=== PATIENT | male | born 1950 | race African-American/Black ===

== ENCOUNTER 2019-11-09 06:31 | Outpatient (CLI) | payer BC, MEDICARE, SELFPAY ==
--- NOTE | 2019-11-09 06:39 | ECHO_ITS ---
Patient Info Name: Abiel Flores Age: 69 years : 1950 Gender: Male Ht: 70 in Wt: 158 lbs BSA: 1.88 m2 HR: 66 bpm BP: 107 / 70 mmHg Exam Date: 11/09/2019 6:53 AM Exam Location: [facility] Patient Status: Outpatient Admit Date: 11/09/2019 Staff Ordering Physician: Keegan Dueñas DO Fleet Driver: Dimas Cardona RDCS, RT Attending Provider: Keegan Dueñas DO Referring Physician: Spenser CHOW; Exam Type: CA echo doppler color flow Study Info Indications I50.9 - Heart failure, unspecified Complete two-dimensional, color flow and Doppler transthoracic echocardiogram is performed. Summary 1. Left ventricular chamber dimension is mildly enlarged. 2. Left ventricular systolic function is normal, estimated at 50-55%. 3. There is mild concentric increased left ventricular wall thickness. 4. The left ventricular diastolic function is normal. 5. Ventricular septum is sigmoid shaped. 6. Septum thickness measured 1.5 cm and posterior wall 1.3 cm. No LVOT obstruction. This suggests a possibility of hypertrophic cardiomyopathy. 7. Preserved LV systolic function. 8. Cannot completely rule out small LV apical thrombus. 9. Tissue doppler is not performed. 10. Global longitudinal strain is abnormal at -10.9%. 11. Mildly thickened mitral valve leaflets. 12. There is mild to moderate mitral valve regurgitation. 13. There is mild tricuspid valve regurgitation. Left Ventricle Cannot completely rule out small LV apical thrombus. Tissue doppler is not performed. Ventricular septum is sigmoid shaped. Septum thickness measured 1.5 cm and posterior wall 1.3 cm. No LVOT obstruction. This suggests a possibility of hypertrophic cardiomyopathy. Preserved LV systolic function. Global longitudinal strain is abnormal at -10.9%. Left ventricular chamber dimension is mildly enlarged. Left ventricular systolic function is normal, estimated at 50-55%. There is mild concentric increased left ventricular wall thickness. The left ventricular diastolic function is normal. Right Ventricle Right ventricular chamber dimension is normal. Right ventricular systolic function is normal. Left Atria Left atrial chamber dimension is normal. Right Atria Right atrial chamber dimension is normal. Aortic Valve The aortic valve is trileaflet. There is no aortic valve stenosis. There is no aortic valve regurgitation. Pulmonic Valve There is no pulmonic regurgitation. Mitral Valve Mildly thickened mitral valve leaflets. There is no mitral valve stenosis. There is mild to moderate mitral valve regurgitation. Tricuspid Valve RVSP is not calculated due to an inadequate TR jet. There is mild tricuspid valve regurgitation. Pericardium/Pleural There is no pericardial effusion. Inferior Vena Cava Normal inferior vena cava with >50% collapse upon inspiration consistent with normal right atrial pressure, 5 mmHg. Aorta The aortic root size at the sinus of Valsalva is normal. Left Ventricular Outflow Tract Name Value Normal LVOT 2D LVOT Diameter 2.0 cm LVOT Doppler LVOT Peak Velocity 88 cm/s
== END 2019-11-09 06:32 | disposition home or self-care (01) ==
PROVIDERS: PCP Family Medicine; Visit Provider Internal Medicine Cardiovascular Disease
DX: I50.20 Unspecified systolic (congestive) heart failure (principal); R93.1 Abnormal findings on diagnostic imaging of heart and coronary circulation; I51.7 Cardiomegaly; I08.1 Rheumatic disorders of both mitral and tricuspid valves
CPT/HCPCS: 93306

== ENCOUNTER 2020-01-11 11:38 | Outpatient (RCR) | payer BC, MEDICARE, SELFPAY ==
[2019-10-29 10:18] LABS: INR 1.1; Prothrombin Time 13.7 Seconds (11.1-14.7)
[2019-11-07 11:08] LABS: INR 1.8; Prothrombin Time 20.7 Seconds (11.1-14.7)
[2019-12-10 10:27] LABS: Prothrombin Time 65.4 Seconds (11.1-14.7)
[2019-12-10 10:34] LABS: INR 7.9
[2019-12-14 10:18] LABS: INR 2.8; Prothrombin Time 29.3 Seconds (11.1-14.7)
[2019-12-21 09:55] LABS: INR 1.3; Prothrombin Time 15.8 Seconds (11.1-14.7)
[2019-12-28 09:44] LABS: INR 2.1
[2020-01-11 12:50] LABS: Prothrombin Time 38.5 Seconds (11.1-14.7)
== END 2020-01-27 23:59 | disposition home or self-care (01) ==
LOC: ANHLAB 11:38
PROVIDERS: PCP Family Medicine; Visit Provider Internal Medicine Cardiovascular Disease
DX: I51.3 Intracardiac thrombosis, not elsewhere classified (principal); I50.20 Unspecified systolic (congestive) heart failure
CPT/HCPCS: 36415; 85610

== ENCOUNTER 2020-01-21 09:29 | Outpatient (CLI) | payer MEDICARE, SELFPAY ==
--- NOTE | 2020-01-21 09:43 | ECHO_ITS ---
Patient Info Name: Abiel Flores Age: 69 years : 1950 Gender: Male Ht: 70 in Wt: 157 lbs BSA: 1.88 m2 HR: 71 bpm BP: 127 / 80 mmHg Heart Rhythm: Sinus Rhythm Technical Quality: Good Exam Date: 01/21/2020 9:52 AM Exam Location: [facility] Patient Status: Outpatient Admit Date: 01/21/2020 Staff Ordering Physician: Keegan Dueñas DO Medical Records Clerk: Bobbi Shepherd RDCS Attending Provider: Keegan Dueñas DO Referring Physician: Spenser CHOW; Exam Type: CA echo doppler color flow Study Info Indications - chf Complete two-dimensional, color flow and Doppler transthoracic echocardiogram is performed. Summary 1. Left ventricular chamber dimension is normal. 2. Left ventricular systolic function is normal, estimated at 55-60%. 3. Ventricular septum is sigmoid shaped. 4. There is moderately increased left ventricular wall thickness. 5. The left ventricular diastolic function is grade I diastolic dysfunction. 6. E/e' 12 is mildly elevated. 7. Global longitudinal strain is abnormal at -12.9%. 8. Left atrial chamber dimension is moderately enlarged. 9. There is mild mitral valve regurgitation. 10. No pulmonary hypertension, estimated pulmonary arterial systolic pressure is 28 mmHg. 11. There is trace pulmonic regurgitation. Left Ventricle E/e' 12 is mildly elevated. Global longitudinal strain is abnormal at -12.9%. Ventricular septum is sigmoid shaped. Left ventricular chamber dimension is normal. Left ventricular systolic function is normal, estimated at 55-60%. There is moderately increased left ventricular wall thickness. The left ventricular diastolic function is grade I diastolic dysfunction. Right Ventricle Right ventricular chamber dimension is normal. Right ventricular systolic function is normal. Left Atria Left atrial chamber dimension is moderately enlarged. Right Atria Right atrial chamber dimension is normal. Aortic Valve The aortic valve is trileaflet. There is no aortic valve stenosis. There is no aortic valve regurgitation. Pulmonic Valve There is trace pulmonic regurgitation. Mitral Valve There is no mitral valve stenosis. There is mild mitral valve regurgitation. Tricuspid Valve There is no tricuspid valve regurgitation. No pulmonary hypertension, estimated pulmonary arterial systolic pressure is 28 mmHg. Pericardium/Pleural There is no pericardial effusion. Inferior Vena Cava Normal inferior vena cava with >50% collapse upon inspiration consistent with normal right atrial pressure, 5 mmHg. Aorta The aortic root size at the sinus of Valsalva is normal. Left Ventricular Outflow Tract Name Value Normal LVOT 2D LVOT Diameter 2.0 cm LVOT Doppler LVOT Peak Gradient 4 mmHg LVOT Mean Gradient 2 mmHg LVOT VTI 17 cm LVOT VTI/AV VTI Ratio 0.8 LVOT Stroke Volume 53 ml LVOT CO 12.8 l/min LVOT CI 6.8 l/min/m2 Pulmonic Valve
== END 2020-01-21 09:30 | disposition home or self-care (01) ==
PROVIDERS: PCP Family Medicine; Visit Provider Internal Medicine Cardiovascular Disease
DX: I50.20 Unspecified systolic (congestive) heart failure (principal); I34.0 Nonrheumatic mitral (valve) insufficiency
CPT/HCPCS: 93306

== ENCOUNTER 2020-03-21 11:38 | Outpatient (CLI) | payer MEDICARE, SELFPAY ==
--- NOTE | 2020-03-21 09:07 | ECHO_ITS ---
Patient Info Name: Abiel Flores Age: 70 years : 1950 Gender: Male Ht: 72 in Wt: 160 lbs BSA: 1.92 m2 HR: 82 bpm BP: 123 / 84 mmHg Technical Quality: Good Exam Date: 03/21/2020 9:22 AM Exam Location: [facility] Patient Status: Outpatient Admit Date: 03/21/2020 Staff Ordering Physician: Keegan Dueñas DO Account Group Supervisor: Dimas Cardona RDCS, RT Attending Provider: Keegan Dueñas DO Referring Physician: Spenser CHOW; Exam Type: CA echo doppler color flow Study Info Indications I50.9 - Heart failure, unspecified Complete two-dimensional, color flow and Doppler transthoracic echocardiogram is performed. Summary 1. Left ventricular chamber dimension is moderately enlarged. 2. Left ventricular systolic function is severely reduced, estimated at 25-30%. 3. There is moderately increased left ventricular wall thickness. 4. The left ventricular diastolic function is grade III diastolic dysfunction. 5. E/e' 19 is elevated. 6. Global longitudinal strain is abnormal at -5.5% with apical sparing suggesting cardiac amyloidosis. 7. Left atrial chamber dimension is mildly enlarged. 8. Right atrial chamber dimension is mildly enlarged. 9. There is moderate mitral valve regurgitation. 10. There is moderate tricuspid valve regurgitation. 11. Mild pulmonary hypertension, estimated pulmonary arterial systolic pressure is 49 mmHg. 12. Dilated inferior vena cava with <50% collapse upon inspiration consistent with significantly elevated right atrial pressure, 15 mmHg. 13. There is trivial pericardial effusion. Left Ventricle E/e' 19 is elevated. Global longitudinal strain is abnormal at -5.5% with apical sparing suggesting cardiac amyloidosis. Left ventricular chamber dimension is moderately enlarged. Left ventricular systolic function is severely reduced, estimated at 25-30%. There is moderately increased left ventricular wall thickness. The left ventricular diastolic function is grade III diastolic dysfunction. Right Ventricle Right ventricular chamber dimension is normal. Right ventricular systolic function is reduced. Left Atria Left atrial chamber dimension is mildly enlarged. Right Atria Right atrial chamber dimension is mildly enlarged. Aortic Valve The aortic valve is trileaflet. There is no aortic valve stenosis. There is no aortic valve regurgitation. Pulmonic Valve There is no pulmonic regurgitation. Mitral Valve There is no mitral valve stenosis. There is moderate mitral valve regurgitation. Tricuspid Valve There is moderate tricuspid valve regurgitation. Mild pulmonary hypertension, estimated pulmonary arterial systolic pressure is 49 mmHg. Pericardium/Pleural There is trivial pericardial effusion. Inferior Vena Cava Dilated inferior vena cava with <50% collapse upon inspiration consistent with significantly elevated right atrial pressure, 15 mmHg. Aorta The aortic root size at the sinus of Valsalva is normal. Left Ventricular Outflow Tract Name Value Normal LVOT 2D LVOT Diameter 2.1 cm LVOT Doppler LVOT Peak Gradient 1 mmHg LVOT Mean Gr
[2020-03-21 09:09] LABS: INR 1.1; Prothrombin Time 13.7 Seconds (11.1-14.7)
[2020-03-21 12:43] LABS: Blood Urea Nitrogen 24 mg/dL (9-20); Calcium 8.9 mg/dL (8.4-10.2); Carbon Dioxide 25 mmol/L (22-30); Chloride 105 mmol/L (98-107); Estimated Glomerular Filt Rate > 60; Glucose 189 mg/dL (75-110); Potassium 4.1 mmol/L (3.4-5.0); Sodium 138 mmol/L (137-145)
== END 2020-03-21 11:39 | disposition home or self-care (01) ==
PROVIDERS: PCP Family Medicine; Visit Provider Internal Medicine Cardiovascular Disease
DX: N18.3 Chronic kidney disease, stage 3 (moderate) (principal); I50.20 Unspecified systolic (congestive) heart failure; I25.10 Atherosclerotic heart disease of native coronary artery without angina pectoris; I51.3 Intracardiac thrombosis, not elsewhere classified; I47.2 Ventricular tachycardia; I47.1 Supraventricular tachycardia; I34.0 Nonrheumatic mitral (valve) insufficiency; I36.1 Nonrheumatic tricuspid (valve) insufficiency; I27.20 Pulmonary hypertension, unspecified
CPT/HCPCS: 36415; 80048; 85610; 93306

== ENCOUNTER 2020-05-16 08:29 | Outpatient (CLI) | payer MEDICARE, SELFPAY ==
[2020-05-16 09:22] LABS: Albumin Level 3.9 g/dL (3.5-5.1); Blood Urea Nitrogen 24 mg/dL (9-20); Calcium 9.5 mg/dL (8.4-10.2); Carbon Dioxide 28 mmol/L (22-30); Chloride 102 mmol/L (98-107); Estimated Glomerular Filt Rate > 60; Glucose 188 mg/dL (75-110); Phosphorus 4.2 mg/dL (2.5-4.5); Potassium 3.9 mmol/L (3.4-5.0); Sodium 137 mmol/L (137-145)
[2020-05-16 09:41] LABS: Creatinine Urine 24.9 mg/dL; Total Protein Urine Random 11 mg/dL
== END 2020-05-16 08:30 | disposition home or self-care (01) ==
LOC: ANHLAB 08:33
PROVIDERS: PCP Family Medicine; Visit Provider Internal Medicine Nephrology
DX: R80.8 Other proteinuria (principal); I10 Essential (primary) hypertension; E11.9 Type 2 diabetes mellitus without complications
CPT/HCPCS: 36415; 80069; 82570; 84156; 86225; 86334; 86335

== ENCOUNTER 2020-06-06 07:48 | Outpatient (CLI) | payer MEDICARE, SELFPAY ==
--- NOTE | 2020-06-06 08:04 | ECHO_ITS ---
Patient Info Name: Abiel Flores Age: 70 years : 1950 Gender: Male Ht: 69 in Wt: 150 lbs BSA: 1.82 m2 BP: 150 / 59 mmHg Technical Quality: Good Exam Date: 06/06/2020 8:20 AM Exam Location: [facility] Patient Status: Outpatient Admit Date: 06/06/2020 Staff Ordering Physician: Keegan Dueñas DO Aluminum Boats Assembler: Dimas Cardona RDCS, RT Attending Provider: Keegan Dueñas DO Referring Physician: Spenser CHOW; Exam Type: CA echo dop color flow w con Study Info Indications I50.9 - Heart failure, unspecified Complete two-dimensional, color flow and Doppler transthoracic echocardiogram is performed. Summary 1. Left ventricular chamber dimension is mildly enlarged. 2. Left ventricular systolic function is moderately reduced, estimated at 35-40%. 3. The left ventricular diastolic function is abnormal. 4. E/e' 16 is elevated. 5. Global longitudinal strain is abnormal at -7.2% with predominantly apical sparing. 6. Left atrial chamber dimension is mildly enlarged. 7. There is mild mitral valve regurgitation. 8. There is mild tricuspid valve regurgitation. 9. Mild pulmonary hypertension, estimated pulmonary arterial systolic pressure is 48 mmHg. 10. Dilated inferior vena cava with >50% collapse upon inspiration consistent with elevated right atrial pressure, 10 mmHg. Left Ventricle E/e' 16 is elevated. Global longitudinal strain is abnormal at -7.2% with predominantly apical sparing. Left ventricular chamber dimension is mildly enlarged. Left ventricular systolic function is moderately reduced, estimated at 35-40%. The left ventricular diastolic function is abnormal. Right Ventricle Right ventricular chamber dimension is normal. Right ventricular systolic function is normal. Left Atria Left atrial chamber dimension is mildly enlarged. Right Atria Right atrial chamber dimension is normal. Aortic Valve The aortic valve is trileaflet. There is no aortic valve stenosis. There is no aortic valve regurgitation. Pulmonic Valve There is no pulmonic regurgitation. Mitral Valve There is no mitral valve stenosis. There is mild mitral valve regurgitation. Tricuspid Valve There is mild tricuspid valve regurgitation. Mild pulmonary hypertension, estimated pulmonary arterial systolic pressure is 48 mmHg. Pericardium/Pleural There is no pericardial effusion. Inferior Vena Cava Dilated inferior vena cava with >50% collapse upon inspiration consistent with elevated right atrial pressure, 10 mmHg. Aorta The aortic root size at the sinus of Valsalva is normal. Left Ventricular Outflow Tract Name Value Normal LVOT 2D LVOT Diameter 2.14 cm LVOT Doppler LVOT Peak Gradient 2 mmHg LVOT Mean Gradient 1 mmHg LVOT VTI 11.96 cm LVOT VTI/AV VTI Ratio 0.64 LVOT Stroke Volume 43.01 ml LVOT CO 3.84 l/min LVOT CI 2.11 L/min/m2 Pulmonic Valve
== END 2020-06-06 07:49 | disposition home or self-care (01) ==
LOC: ANHCARD 07:49
PROVIDERS: PCP Family Medicine; Visit Provider Internal Medicine Cardiovascular Disease
DX: I50.22 Chronic systolic (congestive) heart failure (principal); I51.7 Cardiomegaly; I27.20 Pulmonary hypertension, unspecified
CPT/HCPCS: C8929

== ENCOUNTER 2020-09-08 07:22 | Outpatient (CLI) | payer MEDICARE, SELFPAY ==
--- NOTE | 2020-09-08 07:52 | ECHO_ITS ---
Patient Info Name: Abiel Flores Age: 70 years : 1950 Gender: Male Ht: 70 in Wt: 152 lbs BSA: 1.84 m2 HR: 80 bpm BP: 115 / 80 mmHg Heart Rhythm: Sinus Rhythm Technical Quality: Good Exam Date: 09/08/2020 8:02 AM Exam Location: [facility] Patient Status: Outpatient Admit Date: 09/08/2020 Staff Ordering Physician: Keegan Dueañs DO Copying Machine Mechanic: Rancho Evans RDCS Attending Provider: Keegan Dueñas DO Referring Physician: Spenser CHOW; Exam Type: CA echo dop color flow w con Study Info Indications I50.22 - Chronic systolic (congestive) heart failure Complete two-dimensional, color flow and Doppler transthoracic echocardiogram is performed. History/Risk Factors Chronic systolic heart failure. Summary 1. Complete two-dimensional, color flow and Doppler transthoracic echocardiogram is performed. 2. Left ventricular chamber dimension is mildly enlarged. 3. Basal to mid LV segments are hypokinetic. 4. Left ventricular systolic function is moderately reduced, estimated at 35-40%. 5. There is moderately increased left ventricular wall thickness. 6. The left ventricular diastolic function is grade IV diastolic dysfunction. 7. E/e' 22 is elevated. 8. Right ventricular systolic function is reduced with TAPSE 1.4 cm. 9. Left atrial chamber dimension is mildly enlarged. 10. Right atrial chamber dimension is mildly enlarged. 11. There is mild to moderate mitral valve regurgitation. 12. There is mild tricuspid valve regurgitation. 13. Moderate pulmonary hypertension, estimated pulmonary arterial systolic pressure is 52 mmHg. 14. Dilated inferior vena cava with >50% collapse upon inspiration consistent with elevated right atrial pressure, 10 mmHg. Left Ventricle E/e' 22 is elevated. Basal to mid LV segments are hypokinetic. Left ventricular chamber dimension is mildly enlarged. Left ventricular systolic function is moderately reduced, estimated at 35-40%. There is moderately increased left ventricular wall thickness. The left ventricular diastolic function is grade IV diastolic dysfunction. Right Ventricle Right ventricular systolic function is reduced with TAPSE 1.4 cm. Right ventricular chamber dimension is mildly enlarged. Left Atria Left atrial chamber dimension is mildly enlarged. Right Atria Right atrial chamber dimension is mildly enlarged. Aortic Valve The aortic valve is trileaflet. There is no aortic valve stenosis. There is no aortic valve regurgitation. Pulmonic Valve There is no pulmonic regurgitation. Mitral Valve There is no mitral valve stenosis. There is mild to moderate mitral valve regurgitation. Tricuspid Valve There is mild tricuspid valve regurgitation. Moderate pulmonary hypertension, estimated pulmonary arterial systolic pressure is 52 mmHg. Pericardium/Pleural There is no pericardial effusion. Inferior Vena Cava Dilated inferior vena cava with >50% collapse upon inspiration consistent with elevated right atrial pressure, 10 mmHg. Aorta The aortic root size at the sinus of Valsalva is normal. Left Ventricular Outflow Tract Name Value Normal LVOT Doppler LVOT Peak Gradient 1 mmHg LVOT Mean Gradient
== END 2020-09-08 07:23 | disposition home or self-care (01) ==
PROVIDERS: PCP Family Medicine; Visit Provider Internal Medicine Cardiovascular Disease
DX: I50.22 Chronic systolic (congestive) heart failure (principal); I08.1 Rheumatic disorders of both mitral and tricuspid valves; I27.20 Pulmonary hypertension, unspecified
CPT/HCPCS: 93306

== ENCOUNTER 2020-10-06 09:00 | Outpatient (CLI) | payer MEDICARE, SELFPAY ==
[2020-10-06 09:36] LABS: Anion Gap 7 mmol/L (8-16); Blood Urea Nitrogen 34 mg/dL (9-20); Calcium 9.5 mg/dL (8.4-10.2); Carbon Dioxide 27 mmol/L (22-30); Chloride 105 mmol/L (98-107); Estimated Glomerular Filt Rate > 60; Glucose 194 mg/dL (75-110); Magnesium 2.1 mg/dL (1.6-2.3); Potassium 4.4 mmol/L (3.4-5.0); Sodium 139 mmol/L (137-145)
== END 2020-10-06 09:01 | disposition home or self-care (01) ==
PROVIDERS: PCP Family Medicine; Visit Provider Internal Medicine Cardiovascular Disease
DX: I25.10 Atherosclerotic heart disease of native coronary artery without angina pectoris (principal); E78.5 Hyperlipidemia, unspecified; I10 Essential (primary) hypertension
CPT/HCPCS: 36415; 80048; 83735

== ENCOUNTER 2020-10-16 09:37 | Outpatient (CLI) | payer MEDICARE, SELFPAY ==
[2020-10-16 10:20] LABS: Alanine Aminotransferase 79 U/L (4-50); Albumin Level 3.8 g/dL (3.5-5.1); Alkaline Phosphatase 80 U/L (38-126); Anion Gap 8 mmol/L (8-16); Aspartate Amino Transferase 46 U/L (17-59); Bilirubin,Total 1.4 mg/dL (0.2-1.3); Blood Urea Nitrogen 31 mg/dL (9-20); Calcium 9.8 mg/dL (8.4-10.2); Carbon Dioxide 33 mmol/L (22-30); Chloride 100 mmol/L (98-107); Estimated Glomerular Filt Rate > 60; Glucose 166 mg/dL (75-110); Magnesium 2.1 mg/dL (1.6-2.3); Potassium 4.3 mmol/L (3.4-5.0); Sodium 141 mmol/L (137-145)
== END 2020-10-16 09:38 | disposition home or self-care (01) ==
PROVIDERS: PCP Family Medicine; Visit Provider Internal Medicine Cardiovascular Disease
DX: E78.5 Hyperlipidemia, unspecified (principal); I10 Essential (primary) hypertension; I25.10 Atherosclerotic heart disease of native coronary artery without angina pectoris; I50.22 Chronic systolic (congestive) heart failure
CPT/HCPCS: 36415; 80053; 83735

== ENCOUNTER 2020-11-10 09:26 | Outpatient (CLI) | payer MEDICARE, SELFPAY ==
[2020-11-10 10:15] LABS: Anion Gap 8 mmol/L (8-16); Blood Urea Nitrogen 22 mg/dL (9-20); Calcium 9.6 mg/dL (8.4-10.2); Carbon Dioxide 30 mmol/L (22-30); Chloride 101 mmol/L (98-107); Estimated Glomerular Filt Rate > 60; Glucose 166 mg/dL (75-110); Phosphorus 3.9 mg/dL (2.5-4.5); Potassium 4.6 mmol/L (3.4-5.0); Sodium 139 mmol/L (137-145)
[2020-11-10 10:21] LABS: Total Protein Urine Random 10 mg/dL; Ur Ttl Prot Creatinine Ratio 0.56 mg/mg (0-0.20)
== END 2020-11-10 09:27 | disposition home or self-care (01) ==
PROVIDERS: PCP Family Medicine; Visit Provider Internal Medicine Nephrology
DX: R80.8 Other proteinuria (principal); E11.9 Type 2 diabetes mellitus without complications; I10 Essential (primary) hypertension
CPT/HCPCS: 36415; 80069; 82570; 84156

== ENCOUNTER 2020-12-16 09:57 | Outpatient (CLI) | payer MEDICARE, SELFPAY ==
[2020-12-16 10:39] LABS: Basophils Percent Auto 0.3 % (0.2-1.2); Eosinophils Absolute Auto 0.1 K/mm3 (0-0.3); Eosinophils Percent Auto 1.4 % (0-4.4); Hematocrit 43.6 % (42.0-52.0); Hemoglobin 14.2 g/dL (14.0-18.0); Immature Granulocyte Absolute 0.02 K/mm3 (0.00-0.031); Immature Granulocyte Percent A 0.3 % (0-0.5); Lymphocytes Percent Auto 25.7 % (18.3-44.2); Mean Corpuscular HGB Conc 32.6 g/dl (32-36); Mean Corpuscular Hemoglobin 29.9 pg (26-34); Mean Corpuscular Volume 91.8 fl (80-100); Mean Platelet Volume 9.8 fl (7.4-10.4); Monocytes Absolute Auto 0.6 K/mm3 (0.1-0.6); Monocytes Percent Auto 8.7 % (2.6-8.5); Neutrophils Absolute Auto 4.7 K/mm3 (1.3-6.7); Neutrophils Percent Auto 63.6 % (45.5-73.1); Platelet Count Result 276 k/mm3 (150-375); Red Blood Count 4.75 M/mm3 (4.6-6.20); Red Cell Distribution Width 13.2 % (11.5-14.5); White Blood Count 7.4 K/mm3 (4.5-10.0)
[2020-12-16 10:52] LABS: Alanine Aminotransferase 15 U/L (4-50); Albumin Level 4.3 g/dL (3.5-5.1); Alkaline Phosphatase 61 U/L (38-126); Anion Gap 7 mmol/L (8-16); Aspartate Amino Transferase 24 U/L (17-59); Bilirubin,Total 0.6 mg/dL (0.2-1.3); Blood Urea Nitrogen 24 mg/dL (9-20); Calcium 10.2 mg/dL (8.4-10.2); Carbon Dioxide 33 mmol/L (22-30); Chloride 98 mmol/L (98-107); Estimated Glomerular Filt Rate > 60; Glucose 134 mg/dL (75-110); Potassium 4.2 mmol/L (3.4-5.0); Sodium 138 mmol/L (137-145)
[2020-12-16 11:00] LABS: Immunoglobulin A 526 mg/dL (70-400); Immunoglobulin G 698 mg/dL (700-1600); Immunoglobulin M 165 mg/dL (40-230)
[2020-12-18 12:57] LABS: Kappa\\Lambda Light Chains 1.57 (0.26-1.65); Lambda Light Chain 16.3 mg/L (5.7-26.3)
[2020-12-19 14:00] LABS: Beta-2-Microglobulin 2.14 mg/L (<=2.51)
[2020-12-20 05:54] LABS: Albumin 4.2 g/dL (3.8-4.8); Alpha 1 Globulin 0.3 g/dL (0.2-0.3); Alpha 2 Globulin 0.9 g/dL (0.5-0.9); Beta 1 Globulin 0.5 g/dL (0.4-0.6); Gamma Globulin 0.7 g/dL (0.8-1.7); Protein, Total 7.2 g/dL (6.1-8.1)
== END 2020-12-16 09:58 | disposition home or self-care (01) ==
PROVIDERS: PCP Physician Assistant; Visit Provider Internal Medicine Hematology & Oncology
DX: D47.2 Monoclonal gammopathy (principal)
CPT/HCPCS: 36415; 80053; 82232; 82784; 83883; 84155; 84165; 85025

== ENCOUNTER 2021-03-02 09:06 | Outpatient (CLI) | payer MEDICARE, SELFPAY ==
[2021-03-02 10:15] LABS: Creatinine Urine 92.5 mg/dL
[2021-03-02 10:31] LABS: Hemoglobin A1C 5.9 % (<5.7)
[2021-03-02 10:31] LABS: MALB Creatinine Ratio < 6.5 mg/g (0-30); Microalbumin Urine Random < 6.0 mg/L (0-16.7)
[2021-03-02 10:36] LABS: Alanine Aminotransferase 14 U/L (4-50); Albumin Level 4.3 g/dL (3.5-5.1); Alkaline Phosphatase 58 U/L (38-126); Anion Gap 8 mmol/L (8-16); Aspartate Amino Transferase 26 U/L (17-59); Bilirubin,Total 0.4 mg/dL (0.2-1.3); Blood Urea Nitrogen 21 mg/dL (9-20); Calcium 9.7 mg/dL (8.4-10.2); Carbon Dioxide 29 mmol/L (22-30); Chloride 103 mmol/L (98-107); Cholesterol 163 mg/dL (0-200); Estimated Glomerular Filt Rate > 60; Glucose 155 mg/dL (75-110); HDL Direct 55 mg/dL; Potassium 4.1 mmol/L (3.4-5.0); Sodium 140 mmol/L (137-145); Triglycerides 83 mg/dL (<150)
[2021-03-02 10:47] LABS: LDL Cholesterol Direct 79 mg/dL
[2021-03-02 11:08] LABS: Prostate Specific Antigen < 0.1 ng/mL (< OR = 4.0)
[2021-03-02 11:42] LABS: Folic Acid 19.2 ng/mL (2.76->20)
== END 2021-03-02 09:07 | disposition home or self-care (01) ==
PROVIDERS: PCP Physician Assistant; Visit Provider Physician Assistant
DX: E11.65 Type 2 diabetes mellitus with hyperglycemia (principal); E78.5 Hyperlipidemia, unspecified; R80.9 Proteinuria, unspecified; Z12.5 Encounter for screening for malignant neoplasm of prostate; I10 Essential (primary) hypertension
CPT/HCPCS: 36415; 80053; 80061; 82043; 82607; 82746; 83036; 84153; G0103

== ENCOUNTER 2021-07-20 09:41 | Outpatient (CLI) | payer MEDICARE, SELFPAY ==
[2021-07-20 10:00] LABS: Basophils Percent Auto 0.3 % (0.2-1.2); Eosinophils Absolute Auto 0.1 K/mm3 (0-0.3); Hematocrit 45.3 % (42.0-52.0); Hemoglobin 14.7 g/dL (14.0-18.0); Immature Granulocyte Absolute 0.01 K/mm3 (0.00-0.031); Immature Granulocyte Percent A 0.2 % (0-0.5); Lymphocytes Absolute Auto 1.49 K/mm3 (0.9-3.2); Lymphocytes Percent Auto 24.2 % (18.3-44.2); Mean Corpuscular HGB Conc 32.5 g/dl (32-36); Mean Corpuscular Hemoglobin 30.2 pg (26-34); Mean Corpuscular Volume 93.2 fl (80-100); Mean Platelet Volume 10.2 fl (7.4-10.4); Monocytes Absolute Auto 0.5 K/mm3 (0.1-0.6); Monocytes Percent Auto 7.6 % (2.6-8.5); Neutrophils Percent Auto 65.7 % (45.5-73.1); Platelet Count Result 277 k/mm3 (150-375); Red Blood Count 4.86 M/mm3 (4.6-6.20); Red Cell Distribution Width 12.6 % (11.5-14.5); White Blood Count 6.2 K/mm3 (4.5-10.0)
[2021-07-20 12:24] LABS: Alanine Aminotransferase 13 U/L (4-50); Albumin Level 4.3 g/dL (3.5-5.1); Alkaline Phosphatase 65 U/L (38-126); Anion Gap 11 mmol/L (8-16); Aspartate Amino Transferase 21 U/L (17-59); Bilirubin,Total 0.6 mg/dL (0.2-1.3); Blood Urea Nitrogen 25 mg/dL (9-20); Calcium 9.8 mg/dL (8.4-10.2); Carbon Dioxide 25 mmol/L (22-30); Chloride 99 mmol/L (98-107); Estimated Glomerular Filt Rate > 60; Glucose 187 mg/dL (65-110); Potassium 4.3 mmol/L (3.4-5.0); Sodium 135 mmol/L (137-145)
[2021-07-20 12:32] LABS: Immunoglobulin A 523 mg/dL (70-400); Immunoglobulin G 874 mg/dL (700-1600); Immunoglobulin M 174 mg/dL (40-230)
[2021-07-23 04:58] LABS: Albumin 4.2 g/dL (3.8-4.8); Alpha 1 Globulin 0.3 g/dL (0.2-0.3); Alpha 2 Globulin 0.8 g/dL (0.5-0.9); Beta 1 Globulin 0.5 g/dL (0.4-0.6); Gamma Globulin 0.8 g/dL (0.8-1.7)
[2021-07-23 17:23] LABS: Kappa\\Lambda Light Chains 1.44 (0.26-1.65); Lambda Light Chain 15.6 mg/L (5.7-26.3)
== END 2021-07-20 09:42 | disposition home or self-care (01) ==
PROVIDERS: PCP Physician Assistant; Visit Provider Internal Medicine Hematology & Oncology
DX: D47.2 Monoclonal gammopathy (principal)
CPT/HCPCS: 36415; 80053; 82784; 83883; 84155; 84165; 85025

== ENCOUNTER 2021-08-17 07:19 | Outpatient (CLI) | payer MEDICARE, SELFPAY ==
--- NOTE | 2021-08-17 07:40 | ECHO_ITS ---
Patient Info Name: Abiel Flores Age: 71 years : 1950 Gender: Male Ht: 70 in Wt: 155 lbs BSA: 1.86 m2 HR: 68 bpm BP: 102 / 70 mmHg Technical Quality: Good Exam Date: 08/17/2021 7:59 AM Exam Location: [facility] Patient Status: Outpatient Admit Date: 08/17/2021 Staff Ordering Physician: Keegan Dueñas DO Criminal Investigator Customs: Regina Marshall RDCS Attending Provider: Keegan Dueñas DO Referring Physician: Spenser CHOW; Exam Type: CA echo doppler color flow Study Info Indications I50.22 - Chronic systolic (congestive) heart failure Complete two-dimensional, color flow and Doppler transthoracic echocardiogram is performed. Summary 1. Complete two-dimensional, color flow and Doppler transthoracic echocardiogram is performed. 2. Left ventricular chamber dimension is normal. 3. Left ventricular systolic function is preserved, estimated at 50-55%. 4. There is moderately increased left ventricular wall thickness. 5. The left ventricular diastolic function is abnormal. 6. E/e' 16 is elevated. 7. Global longitudinal strain is abnormal at -10.5%. 8. Left atrial chamber dimension is mildly enlarged. 9. There is mild mitral valve regurgitation. 10. No pulmonary hypertension, estimated pulmonary arterial systolic pressure is 19 mmHg. Left Ventricle E/e' 16 is elevated. Global longitudinal strain is abnormal at -10.5%. Left ventricular systolic function is preserved, estimated at 50-55%. Left ventricular chamber dimension is normal. There is moderately increased left ventricular wall thickness. The left ventricular diastolic function is abnormal. Right Ventricle Right ventricular chamber dimension is normal. Right ventricular systolic function is normal. Left Atria Left atrial chamber dimension is mildly enlarged. Right Atria Right atrial chamber dimension is normal. Aortic Valve The aortic valve is trileaflet. There is no aortic valve stenosis. There is no aortic valve regurgitation. Pulmonic Valve There is no pulmonic regurgitation. Mitral Valve There is no mitral valve stenosis. There is mild mitral valve regurgitation. Tricuspid Valve There is no tricuspid valve regurgitation. No pulmonary hypertension, estimated pulmonary arterial systolic pressure is 19 mmHg. Pericardium/Pleural There is no pericardial effusion. Inferior Vena Cava Normal inferior vena cava with >50% collapse upon inspiration consistent with normal right atrial pressure, 5 mmHg. Aorta The aortic root size at the sinus of Valsalva is normal. Left Ventricular Outflow Tract Name Value Normal LVOT 2D LVOT Diameter 2.0 cm LVOT Doppler LVOT Peak Gradient 2 mmHg LVOT Mean Gradient 1 mmHg LVOT VTI 14 cm LVOT VTI/AV VTI Ratio 0.8 LVOT Stroke Volume 40 ml LVOT CO 2.8 l/min LVOT CI 1.5 l/min/m2 Pulmonic Valve Name
== END 2021-08-17 07:20 | disposition home or self-care (01) ==
LOC: ANHCARD 07:20
PROVIDERS: PCP Physician Assistant; Visit Provider Internal Medicine Cardiovascular Disease
DX: I50.22 Chronic systolic (congestive) heart failure (principal); I34.0 Nonrheumatic mitral (valve) insufficiency
CPT/HCPCS: 93306

== ENCOUNTER 2021-09-14 02:40 | Day surgery (SDC) | payer MEDICARE, SELFPAY ==
[2021-09-01 11:56] VITALS: BMI 21.9
--- NOTE | 2021-09-11 19:03 | WPDANESEPPF ---
Anes - Initial Pre Proc Eval Procedure: Operation Date: 09/14/21 13:15 Proposed Procedures p Screening Colonoscopy - Neri Chen MD Date/Time: 09/11/21 19:03 Surgeon: Neri Chen MD Pre Op Diagnosis: neoplasm screening Patient Data Age: 71 Gender: M Height: 1.79 m Weight: 70.5 kg Allergies Allergy/AdvReac Type Severity Reaction Status Date / Time No Known Allergies Allergy Mild Verified 09/14/21 11:13 Home Medications Medication Instructions Recorded Confirmed Type blood sugar diagnostic #100 each 10/24/19 08/20/21 Rx carvedilol 3.125 mg tablet 3.125 mg PO Q12H #180 tablet 11/03/20 09/01/21 Rx glimepiride 4 mg tablet 4 mg PO QAM #90 tablet 11/03/20 09/01/21 Rx sacubitril 24 mg-valsartan 26 mg See Rx Instructions .ROUTE 03/11/21 09/01/21 Rx tablet .COMPLEX #180 tablet furosemide 40 mg tablet See Rx Instructions .ROUTE 03/17/21 09/01/21 Rx .COMPLEX #180 tablet spironolactone 25 mg tablet See Rx Instructions .ROUTE 04/29/21 09/01/21 Rx .COMPLEX #90 tablet metformin 1,000 mg PO BID 09/01/21 09/01/21 History empagliflozin 25 mg tablet 25 mg PO DAILY #90 tablet 09/08/21 09/14/21 Rx Patient hx anesthesia problems: none Family hx anesthesia problems: none Results Review: All pre-operative results and documents have been reviewed as part of the pre-operative evaluation. 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, managed as type 2 Encounter for general adult medical examination without abnormal findings Essential (primary) hypertension Hypertension Left ventricular apical thrombus Microalbuminuria Screening for malignant neoplasm of colon Screening for malignant neoplasm of prostate Seropositive rheumatoid arthritis Uncontrolled diabetes mellitus with microalbuminuria Surgical History Surgical History History of prostate surgery Family History Family History Mother Hypertension Family history of malignant neoplasm of cervix Father Family history of Alzheimer's disease Family history of pancreatic cancer Family history of dementia Social History Social History (Updated 08/20/21 @ 11:35 by Lorelei Nolasco PA-C) Social History: - lives at home with his [id number] Has current girlfriend 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 Smoking status: Never smoker Second hand tobacco smoke exposure: No Alcohol intake: current Drinks per week: 2 Substance use: never Substance use type: does not use Living arrangements: with family Spiritual care concerns: No Anes - Eval Final PreProcedure Day of Procedure 09/11/21 19:03 Patient weight: normal Heart: regular rate and rhythm Lungs: clear to auscultation and normal air movement Airway: Mallampati scale class II Neurological: alert and oriented Last oral intake: >/= 8 hours ASA classification: III Emergent: no Anesthetic plan: proceed Anesthesia type and monitoring: general GIVS and standard monitoring Results Review: All pre-operative results and documents have been reviewed as part of the pre-operative evaluation. Informed Consent: The patient's anesthetic plan and its attendant risks and benefits were discussed with the patient/family/POA. Questions were solicited and answers provided to the satisfaction of the patient/family/POA.
[2021-09-14 11:16] VITALS: BP 106/75; PULSE 83; RESP 18; TEMP 36.7; O2SAT 99
[2021-09-14] MEDS: LACTATED RINGERS 1,000 ML 150 ML IV CONT (11:26)
[2021-09-14 11:34] LABS: Glucose Point of Care 159 mg/dl (65-105)
--- NOTE | 2021-09-14 11:42 | PM.HPGS ---
History of Present Illness History of Present Illness Consent: Risks, benefits, and alternatives have been discussed and questions answered. Patient agrees to proceed with procedure. Chief complaint: neoplasm screening Narrative: Abiel Flores is a 71 year old male here for first screening colonoscopy Review of Systems Constitutional: Constitutional: Denies headache(s) and Denies weakness Eyes: Eyes: Denies blurry vision ENT: Reports Normal hearing present, Denies headache(s) and Denies neck pain Cardiovascular: Cardiovascular: Denies chest pain and Denies dyspnea Respiratory: Respiratory: Denies dyspnea Gastrointestinal: Gastrointestinal: Reports no additional gastrointestinal complaints Genitourinary: Genitourinary: Denies dysuria Musculoskeletal: Musculoskeletal: Denies neck pain Integumentary/Breasts: Skin/Breast: Denies dry skin Neurologic: Reports Normal hearing present, Denies headache(s) and Denies weakness Psychiatric: Psychiatric: Denies anxiety Endocrine: Endocrine: Denies change in body appearance Hematologic/Lymphatic: Hematologic/Lymphatic: Denies easy bleeding Allergic/Immunologic: Allergic/Immunologic: Denies urticaria [facility] Past Medical History Medical History (Updated 09/11/21 @ 19:04 by Sundeep Watson DO) Acute arthritis Cancer Prostate Chronic systolic heart failure EF 50-55% (07/2021) CKD (chronic kidney disease) stage 3, GFR 30-59 ml/min Combined systolic and diastolic congestive heart failure, NYHA class 1 Controlled type 2 diabetes mellitus without complication 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, managed as type 2 Encounter for general adult medical examination without abnormal findings Essential (primary) hypertension Hypertension Left ventricular apical thrombus Microalbuminuria Screening for malignant neoplasm of colon Screening for malignant neoplasm of prostate Seropositive rheumatoid arthritis Uncontrolled diabetes mellitus with microalbuminuria Surgical History Surgical History History of prostate surgery Family History Family History Mother Hypertension Family history of malignant neoplasm of cervix Father Family history of Alzheimer's disease Family history of pancreatic cancer Family history of dementia Social History Social History (Updated 08/20/21 @ 11:35 by Lorelei Nolasco PA-C) Social History: - lives at home with his [id number] Has current girlfriend 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 Smoking status: Never smoker Second hand tobacco smoke exposure: No Alcohol intake: current Drinks per week: 2 Substance use: never Substance use type: does not use Living arrangements: with family Spiritual care concerns: No Meds Home Medications and Allergies Home Medications Medication Instructions Recorded Confirmed Type blood sugar diagnostic #100 each 10/24/19 08/20/21 Rx carvedilol 3.125 mg tablet 3.125 mg PO Q12H #180 tablet 11/03/20 09/01/21 Rx glimepiride 4 mg tablet 4 mg PO QAM #90 tablet 11/03/20 09/01/21 Rx sacubitril 24 mg-valsartan 26 mg See Rx Instructions .ROUTE 03/11/21 09/01/21 Rx tablet .COMPLEX #180 tablet furosemide 40 mg tablet See Rx Instructions .ROUTE 03/17/21 09/01/21 Rx .COMPLEX #180 tablet spironolactone 25 mg tablet See Rx Instructions .ROUTE 04/29/21 09/01/21 Rx .COMPLEX #90 tablet metformin 1,000 mg PO BID 09/01/21 09/01/21 History empagliflozin 25 mg tablet 25 mg PO DAILY #90 tablet 09/08/21 09/14/21 Rx Allergies Allergy/AdvReac Type Severity Reaction Status Date / Time No Known Allergies Allergy Mild Verified 09/14/21 11:13 Vital Signs Vital Signs - 24 hr 09/14/21 11:16 Temperature 98.1 F Pulse Rate 83 Respiratory Rate 18 Blood Pressure 106/75 Pulse Oximetry 99 Exam Const: General: comfortable and no acute distress HENMT: General nose
[2021-09-14 12:10] VITALS: BP 100/67; PULSE 76; RESP 20; O2SAT 100
[2021-09-14 12:20] VITALS: BP 100/68; PULSE 71; RESP 20; O2SAT 100
[2021-09-14 12:30] VITALS: BP 107/71; PULSE 73; RESP 22; O2SAT 100
== END 2021-09-14 13:00 | disposition home or self-care (01) ==
PROVIDERS: PCP Family Medicine; Visit Provider Internal Medicine Gastroenterology
PROC: 0DJD8ZZ Inspection of Lower Intestinal Tract, Via Natural or Artificial Opening Endoscopic (ICD-10-PCS; CPT 45378; principal; 2021-09-14 13:15)
DX: Z12.11 Encounter for screening for malignant neoplasm of colon (principal); D12.3 Benign neoplasm of transverse colon; K57.30 Diverticulosis of large intestine without perforation or abscess without bleeding; K64.8 Other hemorrhoids; I13.0 Hypertensive heart and chronic kidney disease with heart failure and stage 1 through stage 4 chronic kidney disease, or unspecified chronic kidney disease; N18.30 Chronic kidney disease, stage 3 unspecified; I50.40 Unspecified combined systolic (congestive) and diastolic (congestive) heart failure; E13.22 Other specified diabetes mellitus with diabetic chronic kidney disease; M06.9 Rheumatoid arthritis, unspecified; Z85.46 Personal history of malignant neoplasm of prostate; Z79.84 Long term (current) use of oral hypoglycemic drugs
CPT/HCPCS: 45380; 45385; 82948; 88305; J2001; J2704; J7120

== ENCOUNTER 2022-01-25 12:37 | Outpatient (CLI) | payer MEDICARE, SELFPAY ==
[2022-01-25 13:20] LABS: Albumin Level 4.6 g/dL (3.5-5.1); Anion Gap 10 mmol/L (8-16); Blood Urea Nitrogen 23 mg/dL (9-20); Calcium 9.4 mg/dL (8.4-10.2); Carbon Dioxide 26 mmol/L (22-30); Chloride 101 mmol/L (98-107); Estimated Glomerular Filt Rate > 60; Glucose 136 mg/dL (65-110); Phosphorus 3.4 mg/dL (2.5-4.5); Potassium 4.3 mmol/L (3.4-5.0); Sodium 137 mmol/L (137-145)
[2022-01-25 13:21] LABS: Creatinine Urine 37.6 mg/dL; Total Protein Urine Random 6 mg/dL; Ur Ttl Prot Creatinine Ratio 0.16 mg/mg (0-0.20)
== END 2022-01-25 12:38 | disposition home or self-care (01) ==
PROVIDERS: PCP Family Medicine; Visit Provider Internal Medicine Nephrology
DX: R80.8 Other proteinuria (principal); E11.29 Type 2 diabetes mellitus with other diabetic kidney complication
CPT/HCPCS: 36415; 80069; 82570; 84156

== ENCOUNTER 2022-08-09 08:35 | Outpatient (CLI) | payer MEDICARE, SELFPAY ==
[2022-08-09 08:57] LABS: Basophils Percent Auto 0.3 % (0.2-1.2); Eosinophils Absolute Auto 0.2 K/mm3 (0-0.3); Eosinophils Percent Auto 2.4 % (0-4.4); Hematocrit 46.2 % (42.0-52.0); Hemoglobin 15.1 g/dL (14.0-18.0); Immature Granulocyte Absolute 0.03 K/mm3 (0.00-0.031); Immature Granulocyte Percent A 0.5 % (0-0.5); Lymphocytes Absolute Auto 1.58 K/mm3 (0.9-3.2); Lymphocytes Percent Auto 25.4 % (18.3-44.2); Mean Corpuscular HGB Conc 32.7 g/dl (32-36); Mean Corpuscular Hemoglobin 31.7 pg (26-34); Mean Corpuscular Volume 97.1 fl (80-100); Mean Platelet Volume 10.3 fl (7.4-10.4); Monocytes Absolute Auto 0.4 K/mm3 (0.1-0.6); Monocytes Percent Auto 7.1 % (2.6-8.5); Neutrophils Percent Auto 64.3 % (45.5-73.1); Platelet Count Result 287 k/mm3 (150-375); Red Blood Count 4.76 M/mm3 (4.6-6.20); Red Cell Distribution Width 13.1 % (11.5-14.5); White Blood Count 6.2 K/mm3 (4.5-10.0)
[2022-08-09 10:01] LABS: Alanine Aminotransferase 16 U/L (6-50); Albumin Level 4.6 g/dL (3.5-5.1); Alkaline Phosphatase 66 U/L (38-126); Anion Gap 14 mmol/L (8-16); Aspartate Amino Transferase 46 U/L (17-59); Bilirubin,Total 0.7 mg/dL (0.2-1.3); Blood Urea Nitrogen 24 mg/dL (9-20); Calcium 10.1 mg/dL (8.4-10.2); Carbon Dioxide 25 mmol/L (22-30); Chloride 101 mmol/L (98-107); Estimated Glomerular Filt Rate > 60; Glucose 170 mg/dL (65-110); Potassium 4.2 mmol/L (3.4-5.0); Sodium 140 mmol/L (137-145)
[2022-08-09 11:34] LABS: Immunoglobulin A 477 mg/dL (70-400); Immunoglobulin G 664 mg/dL (700-1600); Immunoglobulin M 148 mg/dL (40-230)
[2022-08-11 10:09] LABS: Kappa\\Lambda Light Chains 1.58 (0.26-1.65); Lambda Light Chain 12.6 mg/L (5.7-26.3)
[2022-08-12 16:33] LABS: Albumin 4.3 g/dL (3.8-4.8); Alpha 1 Globulin 0.3 g/dL (0.2-0.3); Beta 1 Globulin 0.5 g/dL (0.4-0.6); Gamma Globulin 0.7 g/dL (0.8-1.7); Protein, Total 7.4 g/dL (6.1-8.1)
== END 2022-08-09 08:36 | disposition home or self-care (01) ==
LOC: ANHLAB 08:38
PROVIDERS: PCP Family Medicine; Visit Provider Internal Medicine Hematology & Oncology
DX: D47.2 Monoclonal gammopathy (principal)
CPT/HCPCS: 36415; 80053; 82784; 83883; 84155; 84165; 85025

== ENCOUNTER 2022-08-09 13:17 | Outpatient (CLI) | payer MEDICARE, SELFPAY ==
--- NOTE | 2022-08-09 13:24 | ECHO_ITS ---
Patient Info Name: Abiel Flores Age: 72 years : 1950 Gender: Male Ht: 70 in Wt: 159 lbs BSA: 1.89 m2 HR: 79 bpm BP: 109 / 75 mmHg Technical Quality: Good Exam Date: 08/09/2022 2:02 PM Exam Location: [facility] Patient Status: Outpatient Admit Date: 08/09/2022 Staff Ordering Physician: Keegan Dueñas DO [employer]olesale Account Executive: Regina Marshall RDCS Attending Provider: Keegan Dueñas DO Referring Physician: Spenser CHOW; Exam Type: CA echo doppler color flow Study Info Indications I50.22 - Chronic systolic (congestive) heart failure Complete two-dimensional, color flow and Doppler transthoracic echocardiogram is performed. Summary 1. Complete two-dimensional, color flow and Doppler transthoracic echocardiogram is performed. 2. Left ventricular chamber dimension is normal. 3. Left ventricular systolic function is mildly reduced, estimated at 45-50%. 4. There is moderately increased left ventricular wall thickness. 5. The left ventricular diastolic function is abnormal. 6. E/e' 18 is elevated. 7. Global longitudinal strain is abnormal at -8.7%, sparing primarily the LV apex which needs to consider amyloidosis. 8. Left atrial chamber dimension is moderately enlarged. 9. There is mild aortic valve sclerosis. 10. There is mild mitral valve regurgitation. 11. No pulmonary hypertension, estimated pulmonary arterial systolic pressure is 22 mmHg. 12. There is trivial pericardial effusion. Left Ventricle Global longitudinal strain is abnormal at -8.7%, sparing primarily the LV apex which needs to consider amyloidosis. E/e' 18 is elevated. Left ventricular chamber dimension is normal. Left ventricular systolic function is mildly reduced, estimated at 45-50%. There is moderately increased left ventricular wall thickness. The left ventricular diastolic function is abnormal. Right Ventricle Right ventricular chamber dimension is normal. Right ventricular systolic function is normal. Left Atria Left atrial chamber dimension is moderately enlarged. Right Atria Right atrial chamber dimension is normal. Aortic Valve The aortic valve is trileaflet. There is mild aortic valve sclerosis. There is no aortic valve stenosis. There is no aortic valve regurgitation. Pulmonic Valve There is no pulmonic regurgitation. Mitral Valve There is no mitral valve stenosis. There is mild mitral valve regurgitation. Tricuspid Valve There is no tricuspid valve regurgitation. No pulmonary hypertension, estimated pulmonary arterial systolic pressure is 22 mmHg. Pericardium/Pleural There is trivial pericardial effusion. Inferior Vena Cava Normal inferior vena cava with >50% collapse upon inspiration consistent with normal right atrial pressure, 5 mmHg. Aorta The aortic root size at the sinus of Valsalva is normal. Left Ventricular Outflow Tract Name Value Normal LVOT 2D LVOT Diameter 2.0 cm LVOT Doppler LVOT Peak Gradient 3 mmHg LVOT Mean Gradient 2 mmHg LVOT VTI 14 cm LVOT VTI/AV VTI Ratio
== END 2022-08-09 13:18 | disposition home or self-care (01) ==
PROVIDERS: PCP Family Medicine; Visit Provider Internal Medicine Cardiovascular Disease
DX: I50.22 Chronic systolic (congestive) heart failure (principal); I34.0 Nonrheumatic mitral (valve) insufficiency
CPT/HCPCS: 36415; 80053; 82784; 83883; 84155; 84165; 85025; 93306

== ENCOUNTER 2022-08-16 11:28 | Outpatient (CLI) | payer MEDICARE, SELFPAY ==
[2022-08-16 12:22] LABS: Creatinine Urine 42.6 mg/dL
[2022-08-16 12:28] LABS: Albumin Level 4.4 g/dL (3.5-5.1); Anion Gap 13 mmol/L (8-16); Blood Urea Nitrogen 23 mg/dL (9-20); Calcium 9.6 mg/dL (8.4-10.2); Carbon Dioxide 23 mmol/L (22-30); Chloride 103 mmol/L (98-107); Estimated Glomerular Filt Rate > 60; Glucose 191 mg/dL (65-110); Phosphorus 3.4 mg/dL (2.5-4.5); Potassium 4.1 mmol/L (3.4-5.0); Sodium 139 mmol/L (137-145)
[2022-08-16 12:48] LABS: Total Protein Urine Random 8 mg/dL; Ur Ttl Prot Creatinine Ratio 0.19 mg/mg (0-0.20)
== END 2022-08-16 11:29 | disposition home or self-care (01) ==
LOC: ANHLAB 11:32
PROVIDERS: PCP Family Medicine; Visit Provider Internal Medicine Nephrology
DX: R80.8 Other proteinuria (principal); E11.9 Type 2 diabetes mellitus without complications; I10 Essential (primary) hypertension
CPT/HCPCS: 36415; 80069; 82570; 84156

== ENCOUNTER 2022-10-04 13:47 | Outpatient (CLI) | payer MEDICARE, SELFPAY ==
--- NOTE | ~2022-10-04 | XR_ITS ---
XR chest 2V DATE: 10/04/2022 14:08 INDICATION: Shortness of breath for a few days TECHNIQUE: 2 views COMPARISON: 08/30/2019 PA and lateral views FINDINGS: There is cardiomegaly. There is pulmonary vascular redistribution which may indicate pulmon jamie venous hypertension. There are small pleural effusions, right greater than left. There is right b asilar infiltrate or atelectasis. Degenerative spurring of the thoracic spine. IMPRESSION: Cardiomegaly, pulmonary vascular redistribution, pleural effusions, suggesting mild conge stive heart failure Right basilar infiltrate or atelectasis Reviewed, dictated and finalized at location A. LATORY AFFAIRS COORDINATOR IMPRESSION: Cardiomegaly, pulmonary vascular redistribution, pleural effusions, suggesting mild congestive heart failure Right basilar infiltrate or atelectasis
== END 2022-10-04 13:48 | disposition home or self-care (01) ==
PROVIDERS: PCP Family Medicine; Visit Provider Internal Medicine Cardiovascular Disease
DX: R06.02 Shortness of breath (principal); R91.8 Other nonspecific abnormal finding of lung field
CPT/HCPCS: 71046

== ENCOUNTER 2023-01-24 17:55 | Outpatient (CLI) | payer MEDICARE, SELFPAY ==
--- NOTE | ~2023-01-24 | XR_ITS ---
EXAMINATION: XR chest 2V Exam Date/Time: 01/24/2023 18:18 RADIO PERSONALITY HISTORY: R04.2 - Hemoptysis, HTN, CHF, DIABETIC Comparison: None available. RESULT: Lines, tubes, and devices: None. Lungs and pleura: Segmental consolidation and acinar opacities in the left lower lung. Left costophr enic angle blunting. Cardiomediastinal silhouette: Stable. Other: No acute osseous or upper abdominal finding. IMPRESSION: Lingular and left lower lobe airspace disease may represent infection or pulmonary hemorrhage. Possib le small left pleural effusion. Reviewed, dictated and finalized at location K. O PERSONALITY IMPRESSION: Lingular and left lower lobe airspace disease may represent infection or pulmon jamie hemorrhage. Possible small left pleural effusion.
== END 2023-01-24 17:56 | disposition home or self-care (01) ==
PROVIDERS: PCP Family Medicine; Visit Provider Family Medicine
DX: R05.9 Cough, unspecified (principal); R04.2 Hemoptysis; I10 Essential (primary) hypertension; I50.9 Heart failure, unspecified; E11.9 Type 2 diabetes mellitus without complications; R91.8 Other nonspecific abnormal finding of lung field
CPT/HCPCS: 71046

== ENCOUNTER 2023-02-12 07:45 | Outpatient (CLI) | payer MEDICARE, SELFPAY ==
--- NOTE | ~2023-02-12 | XR_ITS ---
XR chest 2V 02/12/2023 08:01 Indication: Pneumonia. Procedure: 2 view chest Comparison: Comparison to multiple prior studies sequentially, with oldest reviewed study dated 03/27. Findings: There is bilateral lower lobe airspace disease which has progressed, consistent with pneumo darren. Small right pleural effusion. Underlying heart size. No pneumothorax or edema. No acute osseous abnormality. Impression: 1: Progression of bilateral lower lobe pneumonia with small right pleural effusion. Reviewed, dictated and finalized at location A. Impression: 1: Progression of bilateral lower lobe pneumonia with small right pleural effus ion.
== END 2023-02-12 07:46 | disposition home or self-care (01) ==
PROVIDERS: PCP Family Medicine; Visit Provider Family Medicine
DX: J18.9 Pneumonia, unspecified organism (principal); J90 Pleural effusion, not elsewhere classified
CPT/HCPCS: 71046

== ENCOUNTER 2023-02-19 08:22 | Outpatient (CLI) | payer MEDICARE, SELFPAY ==
[2023-02-19 08:49] LABS: Anion Gap 8 mmol/L (8-16); Blood Urea Nitrogen 33 mg/dL (9-20); Calcium 8.7 mg/dL (8.4-10.2); Carbon Dioxide 25 mmol/L (22-30); Chloride 107 mmol/L (98-107); Estimated Glomerular Filt Rate > 60; Glucose 152 mg/dL (65-110); Magnesium 2.2 mg/dL (1.6-2.3); Potassium 4.1 mmol/L (3.4-5.0); Sodium 140 mmol/L (137-145)
== END 2023-02-19 08:23 | disposition home or self-care (01) ==
PROVIDERS: PCP Family Medicine; Visit Provider Family Medicine
DX: I50.9 Heart failure, unspecified (principal); N18.30 Chronic kidney disease, stage 3 unspecified
CPT/HCPCS: 36415; 80048; 83735

== ENCOUNTER 2023-03-04 09:14 | Outpatient (CLI) | payer MEDICARE, SELFPAY ==
--- NOTE | ~2023-03-04 | XR_ITS ---
EXAMINATION: XR chest 2V 03/04/2023 09:33 INDICATION: Pneumonia PROCEDURE: 2 view chest COMPARISON: Comparison to multiple prior studies sequentially, with oldest reviewed study dated 01/24. FINDINGS: There is been interval near complete resolution of left lower lobe pneumonia. Mild cardiome ama. There are no pleural effusions. There is no pneumothorax suspected. IMPRESSION: 1: Near-complete resolution of left lower lobe pneumonia. Reviewed, dictated and finalized at location A.
== END 2023-03-04 09:15 | disposition home or self-care (01) ==
PROVIDERS: PCP Family Medicine; Visit Provider Physician Assistant Medical
DX: J18.9 Pneumonia, unspecified organism (principal)
CPT/HCPCS: 71046

== ENCOUNTER 2023-03-07 19:28 | Inpatient (IN) | payer MEDICARE, SELFPAY ==
[2023-03-07] VITALS (7 sets, daily range): BP systolic 98–108; BP diastolic 73–88; PULSE 101–111; RESP 19–36; TEMP 36.7; O2SAT 98–100
--- NOTE | ~2023-03-07 | US_ITS ---
EXAMINATION: US venous doppler [facility] DATE: 03/10/2023 10:02 INDICATION: Lower limb edema. TECHNIQUE: Grayscale ultrasound images without and with compression and Doppler ultrasound images of the bilateral lower extremity veins were obtained. COMPARISON: Ultrasound 08/30/2019 FINDINGS: The visualized portions of right common femoral vein, profunda (deep) femoral vein, femoral vein, pop liteal vein, peroneal veins, posterior tibial veins, and greater saphenous vein outflow are patent. The visualized portions of left common femoral vein, profunda femoral vein, femoral vein, popliteal v ein, peroneal veins, posterior tibial veins, and greater saphenous vein outflow are patent. IMPRESSION: 1. No deep venous thrombosis. Reviewed, dictated and finalized at location A.
--- NOTE | ~2023-03-07 | US_ITS ---
Limited Abdominal Sonogram: Real-time sonographic imaging of the right upper quadrant was performed. Clinical History: Abnormal LFTs Findings: The liver appears normal with no evidence of mass lesion or bile duct dilatation. Main por walt vein demonstrates normal direction of flow. The gallbladder is well distended, and appears normal with no evidence of gallstone or wall thickening. The common bile duct measures 4 mm. The visualize d pancreas, aorta, and IVC are unremarkable. Impression: No significant abnormality seen. Reviewed, dictated and finalized at location M. Impression: No significant abnormality seen.
--- NOTE | ~2023-03-07 | XR_ITS ---
EXAMINATION: XR chest 2V Exam Date/Time: 03/07/2023 20:54 CDT HISTORY: SOB, SWELLING TO BOTH FEET, CHF Comparison: 03/04/2023. RESULT: Lines, tubes, and devices: None. Lungs and pleura: Senescent changes, otherwise clear. Cardiomediastinal silhouette: Stable. Other: No acute osseous or upper abdominal finding. IMPRESSION: No acute cardiopulmonary process. Reviewed, dictated and finalized at location K.
--- NOTE | 2023-03-07 19:36 | ECG_ITS ---
Measurements Intervals [place] Rate: 104 P: 73 KS: 177 QRS: -75 QRSD: 141 T: 89 QT: 381 QTc: 502 Interpretive Statements SINUS TACHYCARDIA WITH OCCASIONAL VENTRICULAR PREMATURE COMPLEXES NON PREMATURE ATRIAL CONTRACTIONS BASELINE ARTIFACT RIGHT BUNDLE BRANCH BLOCK INFERIOR MYOCARDIAL INFARCTION, PROBABLY OLD ABNORMAL ECG COMPARED TO ECG 09/04/2019 08:04:45 HEART RATE HAS INCREASED RIGHT BUNDLE-BRANCH BLOCK NOW PRESENT Electronically Signed On 03-08-2023 16:00:48 CDT by Mervin Hernandez M.D.
[2023-03-07 20:00] LABS: Basophils Percent Auto 0.6 % (0.2-1.2); Hematocrit 45.7 % (42.0-52.0); Hemoglobin 14.6 g/dL (14.0-18.0); Immature Granulocyte Absolute 0.02 K/mm3 (0.00-0.031); Immature Granulocyte Percent A 0.4 % (0-0.5); Lymphocytes Absolute Auto 0.68 K/mm3 (0.9-3.2); Lymphocytes Percent Auto 14.6 % (18.3-44.2); Mean Corpuscular HGB Conc 31.9 g/dl (32-36); Mean Corpuscular Volume 103.2 fl (80-100); Mean Platelet Volume 10.8 fl (7.4-10.4); Monocytes Absolute Auto 0.5 K/mm3 (0.1-0.6); Monocytes Percent Auto 9.7 % (2.6-8.5); Neutrophils Absolute Auto 3.5 K/mm3 (1.3-6.7); Neutrophils Percent Auto 74.7 % (45.5-73.1); Platelet Count Result 189 k/mm3 (150-375); Red Blood Count 4.43 M/mm3 (4.6-6.20); Red Cell Distribution Width 15.1 % (11.5-14.5); White Blood Count 4.7 K/mm3 (4.5-10.0)
[2023-03-07 20:04] LABS: INR 1.3
[2023-03-07 20:05] LABS: Partial Thromboplastin Time 27.6 SECONDS (22.3-36.8)
[2023-03-07 20:06] LABS: Alanine Aminotransferase 83 U/L (6-50); Albumin Level 3.9 g/dL (3.5-5.1); Alkaline Phosphatase 73 U/L (38-126); Anion Gap 12 mmol/L (8-16); Aspartate Amino Transferase 66 U/L (17-59); Blood Urea Nitrogen 26 mg/dL (9-20); Carbon Dioxide 23 mmol/L (22-30); Chloride 100 mmol/L (98-107); Estimated CRCL calculation 50 ml/min; Estimated Glomerular Filt Rate > 60; Glucose 200 mg/dL (65-110); Potassium 4.1 mmol/L (3.4-5.0); Sodium 135 mmol/L (137-145)
[2023-03-07 20:27] LABS: NT Pro B Type Natriuretic Pept 8470 pg/mL (19.9-100); Troponin I 0.185 ng/mL (0.000-0.034)
--- NOTE | 2023-03-07 21:01 | PM.IMHP ---
H&P: HPI History of Present Illness Date/Time: 03/07/23 21:01 Chief Complaint: LEG SWELLING Narrative: THIS 73-YEAR-OLD MALE MEDICAL HISTORY SIGNIFICANT CONGESTIVE FAILURE AND DIABETES MELLITUS. Patient presents to the emergency room due to shortness of breath progressively getting worse mainly exertion not present rest, bilateral lower extremity pedal swelling ankle swelling and leg swelling for the last 3 days or so, patient denies PND or orthopnea, no chest pain, no palpitations, has had a dry cough, no fevers, no rigors, no chills, no nausea, no vomiting, no abdominal pain. Preliminary workup was significant for brain natriuretic peptide above 8000, troponin x1 was 0.185, a chest x-ray was reported as: RESULT: Lines, tubes, and devices:? None. Lungs and pleura:? Senescent changes, otherwise clear. Cardiomediastinal silhouette:? Stable. Other:? No acute osseous or upper abdominal finding. ? IMPRESSION: No acute cardiopulmonary process. Review of Systems Review of Systems: Shortness of breath at exertion, bilateral pedal swelling leg swelling ankle swelling persistent dry cough Constitutional: Constitutional: Denies chills, Denies fatigue, Denies fever(s), Denies lethargy, Denies malaise, Denies night sweats, Denies poor appetite and Denies weakness Eyes: Eyes: Denies change in vision ENT: Denies odynophagia Cardiovascular: Cardiovascular: Denies chest pain, Denies rapid heart rate, Reports pedal edema, Reports leg edema, Denies palpitations, Reports dyspnea, Reports dyspnea on exertion, Denies orthopnea and Denies paroxysmal nocturnal dyspnea Respiratory: Respiratory: Reports chest congestion, Reports cough and Denies excessive phlegm production Gastrointestinal: Gastrointestinal: Denies abdominal pain, Denies dyspepsia, Denies heartburn, Denies diarrhea, Denies nausea and Denies vomiting Genitourinary: Genitourinary: Denies dysuria Musculoskeletal: Musculoskeletal: Denies back pain and Denies myalgias Integumentary/Breasts: Skin/Breast: Denies rash Neurologic: Denies focal weakness and Denies Sensory deficit (Neuro) Psychiatric: Psychiatric: Reports no additional psychiatric complaints and Reports as per HPI Endocrine: Endocrine: Denies cold intolerance, Denies fatigue, Denies flushing, Denies heat intolerance, Denies polyphagia, Denies polydipsia and Denies palpitations Hematologic/Lymphatic: Hematologic/Lymphatic: Reports no additional hematologic/lymphatic complaints and Reports as per HPI Allergic/Immunologic: Allergic/Immunologic: Reports no additional allergic/immunologic complaints and Reports as per HPI [facility] Past Medical History Medical History (Updated 03/07/23 @ 23:56 by Tim Hopson MD) Acute arthritis Cancer Prostate Chronic systolic heart failure EF 50-55% (07/2021) CKD (chronic kidney disease) stage 3, GFR 30-59 ml/min Combined systolic and diastolic congestive heart failure, NYHA class 1 Controlled type 2 diabetes mellitus without complication 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, managed as type 2 Encounter for general adult medical examination without abnormal findings Essential (primary) hypertension Hypertension Left ventricular apical thrombus Microalbuminuria Screening for malignant neoplasm of colon Screening for malignant neoplasm of prostate Seropositive rheumatoid arthritis Uncontrolled diabetes mellitus with microalbuminuria Surgical History Surgical History History of prostate surgery Family History Family History Mother Hypertension Family history of malignant neoplasm of cervix Father Family history of Alzheimer's disease Family history of pancreatic cancer Family history of dementia Social History Social History Social History: - lives at home with his [id number] Girlfriend recentl
--- NOTE | 2023-03-07 21:03 | ED.SOB ---
HPI - SOB/Dyspnea General Chief Complaint: Shortness of Breath/Dyspnea Stated Complaint: Pnuemonia/cough Time Seen by Provider: 03/07/23 20:36 History of Present Illness HPI Narrative: Patient with history of CHF exacerbation who had recently been treated for an infection and told to halve his Lasix dose, her past 3 days has noticed increased lower extremity edema and shortness of breath with exertion. No chest pain. Related Data Home Medications Medication Instructions Recorded Confirmed sacubitril 24 mg-valsartan 26 mg 1 tablet PO BID 03/07/23 tablet (Entresto) spironolactone 25 mg tablet 25 mg PO DAILY 03/07/23 03/07/23 Allergies Allergy/AdvReac Type Severity Reaction Status Date / Time No Known Allergies Allergy Mild Verified 03/07/23 19:30 Review of Systems Review of Systems: CONST: No fever. HEENT: No sore throat C/V: No chest pain RESP: Shortness of breath on exertion GI: Some abdominal distention : No dysuria. M/S: Bilateral lower extremity edema. SKIN: No rash. 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, managed as type 2 Encounter for general adult medical examination without abnormal findings Essential (primary) hypertension Hypertension Left ventricular apical thrombus Microalbuminuria Screening for malignant neoplasm of colon Screening for malignant neoplasm of prostate Seropositive rheumatoid arthritis Uncontrolled diabetes mellitus with microalbuminuria Surgical History Surgical History History of prostate surgery Family History Family History Mother Hypertension Family history of malignant neoplasm of cervix Father Family history of Alzheimer's disease Family history of pancreatic cancer Family history of dementia Social History Social History Social History: - lives at home with his [id number] Girlfriend recently . 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 Smoking status: Never smoker Second hand tobacco smoke exposure: No Alcohol intake: current Drinks per week: 2 Substance use: never Substance use type: does not use Lack of Transportation: No Lack of Food: Never True Current Housing: I Have Housing Concerned About Future Housing: No Difficulty Paying Gas/Electric Bills: No Difficulty Paying for Meds: No Currently Unemployed: No Education: Grade School Difficulty w/ Childcare or Family Care: No Living arrangements: with family Spiritual care concerns: No Exam Narrative: EXAMINATION OF ORGAN SYSTEMS/BODY AREAS: Constitutional: Vital signs per nursing GENERAL:[No acute distress, non-toxic appearing.] HEAD: Normal with no signs of head trauma. EYES: EOMI, conjunctiva normal ENT: Hearing grossly intact LUNGS: Nonlabored breathing. HEART: Tachycardic ABD: [Soft], [nontender to palpation] EXT: Bilateral lower extremity edema SKIN: [No rashes or lesions.] NEURO: [Alert and oriented x 3. No gross focal sensory or strength deficits.] PSYCH: Normal affect Course Vital Signs Vital signs: Vital Signs Temperature 98.0 F 03/07/23 19:32 Pulse Rate 106 H 03/07/23 19:32 Respiratory Rate 20 03/07/23 19:32 Blood Pressure 105/85 03/07/23 19:32 Pulse Oximetry 100 03/07/23 19:32 Oxygen Delivery Room Air 03/07/23 19:32 Temperature 97.2 F L 03/08/23 04:35 Pulse Rate 103 H 03/08/23 04:35 Respiratory Rate 20 03/08/23 04:35 Blood Press
[2023-03-07] MEDS: FUROSEMIDE INJ 40 MG/4 ML VIAL IV PUSH (21:57)
--- NOTE | 2023-03-07 23:30 | ADMGEN ---
This patient, Abiel Flores, was admitted to IMU Room 214-01 at 2330. Patient/family oriented to hospital policies and general routines including ID bracelet, bed and alarms, visiting hours, pain management, procedures, bathroom and other care routines, personal items, smoking policy, room service/diet, and visiting hours. Information on how to activate the Rapid Response Team has been discussed. Patient/Family are encouraged to report perceived risks to care and to ask questions if they do not understand what they are told or what they should do.
[2023-03-08] VITALS (19 sets, daily range): BP systolic 85–109; BP diastolic 63–84; PULSE 85–104; RESP 18–28; TEMP 36.2–36.6; O2SAT 94–100; BMI 22.1
--- NOTE | 2023-03-08 | ECHO_ITS ---
Patient Info Name: Abiel Flores Age: 73 years : 1950 Gender: Male Ht: 70 in Wt: 157 lbs BSA: 1.88 m2 HR: 104 bpm BP: 109 / 84 mmHg Heart Rhythm: Sinus Rhythm Technical Quality: Fair Exam Date: 03/08/2023 10:26 AM Exam Location: [facility] Patient Status: Outpatient Admit Date: 03/07/2023 Staff Ordering Physician: Tim Hopson MD [employer] Founder: Huong Disla RDCS Attending Provider: Tim Hopson MD Referring Physician: Mark Anthony KIM; Exam Type: CA echo doppler color flow Study Info Indications - chf Complete two-dimensional, color flow and Doppler transthoracic echocardiogram is performed. Summary 1. Complete two-dimensional, color flow and Doppler transthoracic echocardiogram is performed. 2. Left ventricular chamber dimension is moderately enlarged. 3. Left ventricular systolic function is severely reduced, estimated at 15-20%. 4. There is moderate concentric increased left ventricular wall thickness. 5. The left ventricular diastolic function is grade III diastolic dysfunction. 6. E/e' 25 is elevated. 7. Right ventricular chamber dimension is moderately enlarged. 8. Right ventricular systolic function is severely reduced and with abnormal TAPSE 1.3 cm. 9. Left atrial chamber dimension is moderately enlarged. 10. Right atrial chamber dimension is moderately enlarged. 11. There is trace aortic valve regurgitation. 12. There is mild mitral valve regurgitation. 13. There is mild to moderate tricuspid valve regurgitation. 14. Mild pulmonary hypertension, estimated pulmonary arterial systolic pressure is 49 mmHg. 15. Dilated inferior vena cava with <50% collapse upon inspiration consistent with significantly elevated right atrial pressure, 15 mmHg. 16. There is trivial pericardial effusion. Left Ventricle E/e' 25 is elevated. Left ventricular chamber dimension is moderately enlarged. Left ventricular systolic function is severely reduced, estimated at 15-20%. There is moderate concentric increased left ventricular wall thickness. The left ventricular diastolic function is grade III diastolic dysfunction. Right Ventricle Right ventricular systolic function is severely reduced and with abnormal TAPSE 1.3 cm. Right ventricular chamber dimension is moderately enlarged. Left Atria Left atrial chamber dimension is moderately enlarged. Right Atria Right atrial chamber dimension is moderately enlarged. Aortic Valve The aortic valve is trileaflet. There is no aortic valve stenosis. There is trace aortic valve regurgitation. Pulmonic Valve There is no pulmonic regurgitation. Mitral Valve There is no mitral valve stenosis. There is mild mitral valve regurgitation. Tricuspid Valve There is mild to moderate tricuspid valve regurgitation. Mild pulmonary hypertension, estimated pulmonary arterial systolic pressure is 49 mmHg. Pericardium/Pleural There is trivial pericardial effusion. Inferior Vena Cava Dilated inferior vena cava with <50% collapse upon inspiration consistent with significantly elevated right atrial pressure, 15 mmHg. Aorta The aortic root size at the sinus of Valsalva is normal. Left Ventricular Outflow Tract Name Value Normal LVOT 2D
[2023-03-08 00:27] LABS: Glucose Point of Care 215 mg/dl (65-105)
[2023-03-08 00:57] LABS: Troponin I 0.191 ng/mL (0.000-0.034)
[2023-03-08 04:52] LABS: Anion Gap 11 mmol/L (8-16); Blood Urea Nitrogen 27 mg/dL (9-20); Carbon Dioxide 23 mmol/L (22-30); Chloride 103 mmol/L (98-107); Estimated CRCL calculation 60 ml/min; Estimated Glomerular Filt Rate > 60; Glucose 176 mg/dL (65-110); Magnesium 2.2 mg/dL (1.6-2.3); Phosphorus 4.5 mg/dL (2.5-4.5); Potassium 3.8 mmol/L (3.4-5.0); Sodium 137 mmol/L (137-145)
--- NOTE | 2023-03-08 08:05 | PM.CNCAR ---
Assessment and Plan Assessment and plan (1) Combined systolic and diastolic congestive heart failure, NYHA class 1: Code(s): I50.40 - Unspecified combined systolic (congestive) and diastolic (congestive) heart failure Status: Acute Assessment and Plan: Acute on chronic. NTproBNP 8,470. Agree with diuresis with Lasix 40 mg IV BID. Continue Spironolactone, Coreg, Entresto and Jardiance. (2) NICM (nonischemic cardiomyopathy): Code(s): I42.8 - Other cardiomyopathies Status: Acute Assessment and Plan: With abnormal apical sparing on global longitudinal strain on echo and intermittent LV systolic dysfunction, referred to Amyloidosis clinic at [facility] for assessment. He has not seen them yet. (3) CAD (coronary artery disease): Qualifiers: Coronary Disease-Associated Artery/Lesion type: [place] artery [place] vs. transplanted heart: [place] heart Associated angina: without angina Qualified Code(s): I25.10 - Atherosclerotic heart disease of [place] coronary artery without angina pectoris Code(s): I25.10 - Atherosclerotic heart disease of [place] coronary artery without angina pectoris Status: Acute (4) Dyslipidemia: Code(s): E78.5 - Hyperlipidemia, unspecified Status: Acute (5) Hypertension: Qualifiers: Hypertension type: essential hypertension Qualified Code(s): I10 - Essential (primary) hypertension Code(s): I10 - Essential (primary) hypertension Status: Acute Assessment and Plan: Stable. (6) PAT (paroxysmal atrial tachycardia): Code(s): I47.1 - Supraventricular tachycardia Status: Acute (7) PVT (paroxysmal ventricular tachycardia): Code(s): I47.2 - Ventricular tachycardia Status: Acute (8) Elevated troponin: Code(s): R77.8 - Other specified abnormalities of plasma proteins Status: Acute Assessment and Plan: Probably related to acute CHF. Troponin elevated at 0.191. Trend to peak. Obtain echo. History of Present Illness History of Present Illness Consult date/time: 03/08/23 08:05 Reason For Visit: CHF Exac, Elev Trop Narrative: Patient is a 73 yr old man who is my regular cardiology patient presents to ER for NANCE.? He has a history of NICM with LV apical thrombus, probably due to viral illness, DM, hypertension, dyslipidemia, CAD, PAT and PVT. He reports he had pneumonia and on antibiotics for it. He coughs and either it is dry or he has some yellow mucus. In last 3 days he noted more NANCE walking short distance and ankle and feet edema so he came to ER to get evaluated. Previously, he was walking around in his neighborhood without any sob or problems. Denies orthopnea, PND, chest pain or palpitations. 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 Awan: Modest plaque of LM, LAD and Diag at about 30% stenosis.) - 08/31/2019 Echo/MUGA:: 08/09/22 Echo: EF 45-50%, mod LVH, diastolic dysfunction (E/e' 18), mod LAE, mild MR, trace PI, consider amyloidosis with GSL apical sparing. 08/17/21 Echo: EF 50-55%, mod LVH, diastolic dysfunction (E/e' 16), mild LAE, mild MR. 09/08/20 Echo: EF 35-40%, mild LVE, mod LVH, grade IV diastolic dysfunction (E/e' 22), mild biatrial enlargement, mild-mod MR, mild TR, RVSP 52 mmHg. 06/06/20 Echo: EF 35-40%, mild LVE, diastolic dysfunction (E/e' 16), mild LAE, mild TR, RVSP 48 mmHg. 03/21/20 Echo: EF 25-30%, mod LVE, mod LVH, grade III diastolic dysfunction (E/e' 19), mild biatrial enlargement, mod MR/TR, RVSP 49 mmHg, trivial pericardial effusion. 01/21/20 Echo: EF 55-60%, mod LVH, sigmoid septum, grade I diastolic dysfunction (E/e' 12), mod LAE, mild MR, trace TR. 11/09/19 Echo: EF 50-55%, mild LVH, sigmoid septum, Septum thickness at 1.5 cm and posterior wall 1.3 cm with LVOT obstruction which s/o HCM, cannot r/o small LV apical thrombus, mild MV thickness, mild-mod MR, mild TR. Echo (Mod LVE, mod LVH, severe global LV systolic dysfunction, EF 10-15%, marcell
[2023-03-08] MEDS: FUROSEMIDE INJ 40 MG/4 ML VIAL IV PUSH ×2 (08:21→16:44)
[2023-03-08] MEDS: metFORMIN HCL XR 500 MG TAB.SR.24H 1000 MG PO (09:35)
[2023-03-08] MEDS: SPIRONOLACTONE 25 MG TABLET PO (09:39)
[2023-03-08] MEDS: SACUBITRIL/VALSARTAN 24-26 MG TABLET 1 TAB PO ×2 (09:39→20:20)
[2023-03-08] MEDS: carvediloL 3.125 MG TABLET PO ×2 (09:40→16:45)
[2023-03-08] MEDS: EMPAGLIFLOZIN 25 MG TABLET PO (09:41)
[2023-03-08] MEDS: GLIMEPIRIDE 2 MG TABLET 4 MG PO (09:41)
[2023-03-08 11:34] LABS: Glucose Point of Care 254 mg/dl (65-105)
[2023-03-08] MEDS: INSULIN ASPART (*BKC) 100 UNITS/ML SUB-Q ×2 (11:37→16:40)
--- NOTE | 2023-03-08 15:39 | PM.IMPN ---
Progress Note: A&P Assessment and Plan (1) Combined systolic and diastolic congestive heart failure, NYHA class 1: Code(s): I50.40 - Unspecified combined systolic (congestive) and diastolic (congestive) heart failure Status: Acute Assessment and Plan: BNP elevated at 8470 fluid restriction to 1500 cc free water daily Aggressive diuresis Daily intake and output Cardiology consult Echocardiogram with your 15-20% grade 3 diastolic dysfunction mild pulmonary hypertension moderate TR Monitor renal function with diuresis Ischemic evaluation process with cardiac catheterization (2) CKD (chronic kidney disease) stage 3, GFR 30-59 ml/min: Qualifiers: Chronic kidney disease stage 3 subtype: unspecified whether 3a or 3b Qualified Code(s): N18.30 - Chronic kidney disease, stage 3 unspecified Code(s): N18.3 - Chronic kidney disease, stage 3 (moderate) Status: Acute Assessment and Plan: CONTINUE TO MONITOR BUN AND CREATININE DAILY BMP (3) PVT (paroxysmal ventricular tachycardia): Code(s): I47.2 - Ventricular tachycardia Status: Acute Assessment and Plan: Continue to monitor (4) PAT (paroxysmal atrial tachycardia): Code(s): I47.1 - Supraventricular tachycardia Status: Acute Assessment and Plan: Continue to monitor (5) CAD (coronary artery disease): Qualifiers: Coronary Disease-Associated Artery/Lesion type: [place] artery [place] vs. transplanted heart: [place] heart Associated angina: without angina Qualified Code(s): I25.10 - Atherosclerotic heart disease of [place] coronary artery without angina pectoris Code(s): I25.10 - Atherosclerotic heart disease of [place] coronary artery without angina pectoris Status: Acute Assessment and Plan: Chest pain-free Continue carvedilol Continue Entresto Continue spironolactone (6) Hypertension: Qualifiers: Hypertension type: essential hypertension Qualified Code(s): I10 - Essential (primary) hypertension Code(s): I10 - Essential (primary) hypertension Status: Acute Assessment and Plan: Well controlled Continue to monitor Subjective Date/time seen: 03/08/23 15:39 Interval history: Feeling much better today. Leg swelling has improved. Denies any chest pain. Review of Systems Review of Systems: All systems reviewed & are unremarkable except as noted in HPI and below Exam Narrative: GENERAL:[No acute distress, non-toxic appearing.] HEAD:? Normal with no signs of head trauma. EYES:? EOMI, conjunctiva normal ENT:? Hearing grossly intact LUNGS:? Nonlabored breathing. Left-sided basal crackle HEART: Regular rate and rhythm ABD:? Soft nondistended nontender EXT: Bilateral lower extremity pitting edema 1+ SKIN:? No rash no lesions NEURO: [Alert and oriented x 3. No gross focal sensory or strength deficits.] PSYCH: Normal affect Objective Data Vital Signs Vital Signs: Vital Signs - 24 hr 03/07/23 19:32 03/07/23 20:43 03/07/23 20:44 Temperature 98.0 F Pulse Rate 106 H 103 H 102 H Respiratory Rate 20 27 H 36 H Blood Pressure 105/85 108/88 Pulse Oximetry 100 99 98 Oxygen Delivery Room Air 03/07/23 20:45 03/07/23 20:46 03/07/23 22:58 Temperature Pulse Rate 101 H 111 H 101 H Respiratory Rate 34 H 36 H 19 Blood Pressure 106/76 98/73 L Pulse Oximetry 100 100 Oxygen Delivery 03/07/23 23:46 03/08/23 00:00 03/08/23 00:00 Temperature Pulse Rate 101 H 99 101 H Respiratory Rate 19 19 Blood Pressure Pulse Oximetry 100 100 Oxygen Delivery Room Air Room Air 03/08/23 00:24 03/08/23 02:00 03/08/23 04:35 Temperature 97.6 F 97.2 F L Pulse Rate 102 H 99 103 H Respiratory Rate 20 20 Blood Pressure 96/77 L 109/84 Pulse Oximetry 94 97 Oxygen Delivery 03/08/23 04:00 03/08/23 04:00 03/08/23 06:00 Temperature Pulse Rate 101 H 103 H 104 H Respiratory Rate 20 Blood Pressure Pulse
[2023-03-08 17:00] LABS: Glucose Point of Care 204 mg/dl (65-105)
[2023-03-08 20:36] LABS: Glucose Point of Care 225 mg/dl (65-105)
[2023-03-09] VITALS (21 sets, daily range): BP systolic 84–105; BP diastolic 61–78; PULSE 70–87; RESP 18–20; TEMP 35.8–36.5; O2SAT 94–100
[2023-03-09 04:45] LABS: Basophils Percent Auto 0.4 % (0.2-1.2); Eosinophils Percent Auto 0.6 % (0-4.4); Hematocrit 43.7 % (42.0-52.0); Hemoglobin 14.3 g/dL (14.0-18.0); Immature Granulocyte Absolute 0.01 K/mm3 (0.00-0.031); Immature Granulocyte Percent A 0.2 % (0-0.5); Lymphocytes Absolute Auto 1.44 K/mm3 (0.9-3.2); Lymphocytes Percent Auto 29.4 % (18.3-44.2); Mean Corpuscular HGB Conc 32.7 g/dl (32-36); Mean Corpuscular Hemoglobin 32.4 pg (26-34); Mean Corpuscular Volume 98.9 fl (80-100); Mean Platelet Volume 10.9 fl (7.4-10.4); Monocytes Absolute Auto 0.5 K/mm3 (0.1-0.6); Monocytes Percent Auto 10.6 % (2.6-8.5); Neutrophils Absolute Auto 2.9 K/mm3 (1.3-6.7); Neutrophils Percent Auto 58.8 % (45.5-73.1); Platelet Count Result 194 k/mm3 (150-375); Red Blood Count 4.42 M/mm3 (4.6-6.20); Red Cell Distribution Width 14.9 % (11.5-14.5); White Blood Count 4.9 K/mm3 (4.5-10.0)
[2023-03-09 05:03] LABS: Alanine Aminotransferase 300 U/L (6-50); Albumin Level 3.2 g/dL (3.5-5.1); Alkaline Phosphatase 85 U/L (38-126); Anion Gap 7 mmol/L (8-16); Aspartate Amino Transferase 287 U/L (17-59); Bilirubin,Total 1.2 mg/dL (0.2-1.3); Blood Urea Nitrogen 39 mg/dL (9-20); Calcium 8.6 mg/dL (8.4-10.2); Carbon Dioxide 27 mmol/L (22-30); Chloride 103 mmol/L (98-107); Estimated CRCL calculation 55 ml/min; Estimated Glomerular Filt Rate > 60; Glucose 141 mg/dL (65-110); Magnesium 2.5 mg/dL (1.6-2.3); Potassium 3.7 mmol/L (3.4-5.0); Sodium 137 mmol/L (137-145)
[2023-03-09 05:08] LABS: Troponin I 0.188 ng/mL (0.000-0.034)
[2023-03-09 07:57] LABS: Glucose Point of Care 165 mg/dl (65-105)
--- NOTE | 2023-03-09 08:08 | PM.PNCARD ---
Progress Note: A&P Assessment and Plan (1) Combined systolic and diastolic congestive heart failure, NYHA class 1: Code(s): I50.40 - Unspecified combined systolic (congestive) and diastolic (congestive) heart failure Status: Acute Assessment and Plan: Acute on chronic. NTproBNP 8,470. Agree with diuresis with Lasix 40 mg IV BID. Continue Spironolactone, Coreg, Entresto and Jardiance. 03/08/23 Echo: EF 15-20%, mod LVE, mod LVH, grade III diastolic dysfunctioin (E/e' 25), mod RVE and RV hypokinesis (TAPSE 1.3 cm), mod biatrial enlargement, trace AI, mild MR, mild-mod TR, RVSP 49 mmHg, trace pericardial effusion. Discuss life vest to prevent sudden cardiac arrest and he is interested. He did have a 10 beat run of monomorphic VT. Discuss risks/benefits/alternative to LHC to reassess coronaries and patient is agreeable for it. Consulted HCG for LHC and plan for tomorrow. (2) NICM (nonischemic cardiomyopathy): Code(s): I42.8 - Other cardiomyopathies Status: Acute Assessment and Plan: With abnormal apical sparing on global longitudinal strain on echo and intermittent LV systolic dysfunction, referred to Amyloidosis clinic at [facility] for assessment. He has not seen them yet. We can order outpatient cardiac MRI for assessment also. (3) CAD (coronary artery disease): Qualifiers: Coronary Disease-Associated Artery/Lesion type: [place] artery [place] vs. transplanted heart: [place] heart Associated angina: without angina Qualified Code(s): I25.10 - Atherosclerotic heart disease of [place] coronary artery without angina pectoris Code(s): I25.10 - Atherosclerotic heart disease of [place] coronary artery without angina pectoris Status: Acute (4) Dyslipidemia: Code(s): E78.5 - Hyperlipidemia, unspecified Status: Acute (5) Hypertension: Qualifiers: Hypertension type: essential hypertension Qualified Code(s): I10 - Essential (primary) hypertension Code(s): I10 - Essential (primary) hypertension Status: Acute Assessment and Plan: Stable. (6) PAT (paroxysmal atrial tachycardia): Code(s): I47.1 - Supraventricular tachycardia Status: Acute (7) PVT (paroxysmal ventricular tachycardia): Code(s): I47.2 - Ventricular tachycardia Status: Acute (8) Elevated troponin: Code(s): R77.8 - Other specified abnormalities of plasma proteins Status: Acute Assessment and Plan: Probably related to acute CHF. Troponin elevated at 0.191. Trend to peak. Obtain echo. Subjective Date/time seen: 03/09/23 08:08 Interval history: Reports breathing improving and less edema of legs. Exam Const: General: cooperative, healthy appearing and comfortable Orientation/consciousness: oriented to person, oriented to place and oriented to time Resp: Auscultation: clear to auscultation bilaterally, no crackles, no rales, no rhonchi and no wheezes Cardio: Rate: regular rate Rhythm: regular rhythm Heart sounds: no murmurs Peripheral pulses: dorsalis pedis present Neuro: General: oriented to person, oriented to place and oriented to time Extrem: Right lower extremity: edema Left lower extremity: edema Other: Mild bilateral ankle and pedal edema Objective Data Vital Signs Vital Signs: Vital Signs - 24 hr 03/08/23 08:26 03/08/23 09:40 03/08/23 10:00 Temperature 97.9 F Pulse Rate 99 104 H 92 Respiratory Rate 28 H Blood Pressure 100/72 Pulse Oximetry 100 Oxygen Delivery 03/08/23 12:24 03/08/23 12:30 03/08/23 14:00 Temperature 97.4 F L Pulse Rate 92 94 93 Respiratory Rate 22 H Blood Pressure 103/82 Pulse Oximetry 100 Oxygen Delivery 03/08/23 16:45 03/08/23 17:17 03/08/23 16:00 Temperature 97.6 F Pulse Rate 100 93 96 Respiratory Rate 18 Blood Pressure 107/79 Pulse Oximetry 99 Oxygen Delivery 03/08/23 20:38 03/08/23 20:00 03/08/23 20:00 Temperature
[2023-03-09] MEDS: GLIMEPIRIDE 2 MG TABLET 4 MG PO (08:16)
[2023-03-09] MEDS: carvediloL 3.125 MG TABLET PO ×2 (08:17→16:57)
[2023-03-09] MEDS: SACUBITRIL/VALSARTAN 24-26 MG TABLET 1 TAB PO ×2 (08:18→20:56)
[2023-03-09] MEDS: EMPAGLIFLOZIN 25 MG TABLET PO (08:18)
[2023-03-09] MEDS: FUROSEMIDE INJ 40 MG/4 ML VIAL IV PUSH ×2 (08:19→16:57)
[2023-03-09 11:59] LABS: Glucose Point of Care 175 mg/dl (65-105)
[2023-03-09] MEDS: SPIRONOLACTONE 25 MG TABLET PO (12:28)
--- NOTE | 2023-03-09 13:18 | PM.IMPN ---
Progress Note: A&P Assessment and Plan (1) Combined systolic and diastolic congestive heart failure, NYHA class 1: Code(s): I50.40 - Unspecified combined systolic (congestive) and diastolic (congestive) heart failure Status: Acute Assessment and Plan: Patient presents with complaints of leg edema. BNP elevated at 8470. CXR clear. Echo EF 15-20% grade 3 diastolic dysfunction, mild pulmonary hypertension and moderate TR. Fluid restriction to 1500 cc free water daily. On lasix IV but I/O's about even but clinically better. Cardiology consulted. BP soft. Monitor renal function with diuresis. Continue medical management with Coreg, Empag, Entresto and Aldactone. Plan for an ischemic evaluation with cardiac catheterization. Appreciate Cardiology input. Check doppler (2) CKD (chronic kidney disease) stage 3, GFR 30-59 ml/min: Qualifiers: Chronic kidney disease stage 3 subtype: unspecified whether 3a or 3b Qualified Code(s): N18.30 - Chronic kidney disease, stage 3 unspecified Code(s): N18.3 - Chronic kidney disease, stage 3 (moderate) Status: Acute Assessment and Plan: BUN up to 39 today with Cr stable at 1.1. Continue to monitor (3) CAD (coronary artery disease): Qualifiers: Associated angina: without angina Coronary Disease-Associated Artery/Lesion type: [place] artery [place] vs. transplanted heart: [place] heart Qualified Code(s): I25.10 - Atherosclerotic heart disease of [place] coronary artery without angina pectoris Code(s): I25.10 - Atherosclerotic heart disease of [place] coronary artery without angina pectoris Status: Acute Assessment and Plan: Chest pain-free. Continue carvedilol. The CHF related to NICMP. Not on ASA or lipitor. Will defer to Cardiology and await [facility] results. (4) Elevated troponin: Code(s): R77.8 - Other specified abnormalities of plasma proteins Status: Acute Assessment and Plan: Trop at 0.19 but now trending down. Etiology unclear. Doubt from the CHF. EKG PVC, new right BBB. Follow up on cardiac cath results. (5) Hypertension: Qualifiers: Hypertension type: essential hypertension Qualified Code(s): I10 - Essential (primary) hypertension Code(s): I10 - Essential (primary) hypertension Status: Acute Assessment and Plan: Patient's blood pressure was reviewed on 4/12 Blood pressure remains well controlled. Will continue current medications. Add Mark englee. (6) Elevated LFTs: Code(s): R79.89 - Other specified abnormal findings of blood chemistry Status: Acute Assessment and Plan: AST 287 and ALT 300 now. No abd pain. Congestion? Viral? Check Hepatitis panel and lipase. Check RUQ US. 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 The patient's blood glucose was reviewed on 03/09 Glucose remains mostly well controlled. Continue AccuCheks covering with sliding scale. Hypoglycemia protocol available as needed. Continue current medications. Check A1c (8) NICM (nonischemic cardiomyopathy): Code(s): I42.8 - Other cardiomyopathies Status: Acute Assessment and Plan: As above (9) PVT (paroxysmal ventricular tachycardia): Code(s): I47.2 - Ventricular tachycardia Status: Acute Assessment and Plan: Continue to monitor (10) PAT (paroxysmal atrial tachycardia): Code(s): I47.1 - Supraventricular tachycardia Status: Acute Assessment and Plan: Continue to monitor Subjective Date/time seen: 03/09/23 13:18 Interval history: 73yo male with CHF here for leg edema. Assuming car
[2023-03-09 16:12] LABS: Glucose Point of Care 244 mg/dl (65-105)
[2023-03-09] MEDS: INSULIN ASPART (*BKC) 100 UNITS/ML SUB-Q (16:41)
[2023-03-09 21:07] LABS: Glucose Point of Care 197 mg/dl (65-105)
[2023-03-10] VITALS (23 sets, daily range): BP systolic 93–108; BP diastolic 54–86; PULSE 59–81; RESP 10–20; TEMP 35.8–36.5; O2SAT 94–100
[2023-03-10 05:41] LABS: Basophils Percent Auto 0.6 % (0.2-1.2); Eosinophils Absolute Auto 0.1 K/mm3 (0-0.3); Eosinophils Percent Auto 1.2 % (0-4.4); Hematocrit 45.8 % (42.0-52.0); Hemoglobin 15.2 g/dL (14.0-18.0); Immature Granulocyte Absolute 0.01 K/mm3 (0.00-0.031); Immature Granulocyte Percent A 0.2 % (0-0.5); Lymphocytes Absolute Auto 1.59 K/mm3 (0.9-3.2); Lymphocytes Percent Auto 31.6 % (18.3-44.2); Mean Corpuscular HGB Conc 33.2 g/dl (32-36); Mean Corpuscular Hemoglobin 32.7 pg (26-34); Mean Corpuscular Volume 98.5 fl (80-100); Mean Platelet Volume 10.8 fl (7.4-10.4); Monocytes Absolute Auto 0.4 K/mm3 (0.1-0.6); Monocytes Percent Auto 8.2 % (2.6-8.5); Neutrophils Absolute Auto 2.9 K/mm3 (1.3-6.7); Neutrophils Percent Auto 58.2 % (45.5-73.1); Platelet Count Result 183 k/mm3 (150-375); Red Blood Count 4.65 M/mm3 (4.6-6.20); Red Cell Distribution Width 14.7 % (11.5-14.5)
[2023-03-10 05:53] LABS: Alanine Aminotransferase 272 U/L (6-50); Albumin Level 3.2 g/dL (3.5-5.1); Alkaline Phosphatase 103 U/L (38-126); Anion Gap 8 mmol/L (8-16); Aspartate Amino Transferase 130 U/L (17-59); Bilirubin,Total 1.1 mg/dL (0.2-1.3); Blood Urea Nitrogen 37 mg/dL (9-20); Calcium 8.4 mg/dL (8.4-10.2); Carbon Dioxide 26 mmol/L (22-30); Chloride 102 mmol/L (98-107); Estimated CRCL calculation 60 ml/min; Estimated Glomerular Filt Rate > 60; Glucose 165 mg/dL (65-110); Lipase 65 U/L (23-300); Magnesium 2.5 mg/dL (1.6-2.3); Potassium 3.7 mmol/L (3.4-5.0); Sodium 136 mmol/L (137-145)
[2023-03-10 07:48] LABS: Hepatitis B Surface Antigen Negative (Negative)
[2023-03-10 07:54] LABS: HAV RESULT Negative (Negative); Hepatitis B Core IgM Result Negative (Negative)
--- NOTE | 2023-03-10 08:03 | PM.PNCARD ---
Progress Note: A&P Assessment and Plan (1) Combined systolic and diastolic congestive heart failure, NYHA class 1: Code(s): I50.40 - Unspecified combined systolic (congestive) and diastolic (congestive) heart failure Status: Acute Assessment and Plan: Acute on chronic. NTproBNP 8,470. Agree with diuresis with Lasix 40 mg IV BID. Continue Spironolactone, Coreg, Entresto and Jardiance. 03/08/23 Echo: EF 15-20%, mod LVE, mod LVH, grade III diastolic dysfunctioin (E/e' 25), mod RVE and RV hypokinesis (TAPSE 1.3 cm), mod biatrial enlargement, trace AI, mild MR, mild-mod TR, RVSP 49 mmHg, trace pericardial effusion. Discuss life vest to prevent sudden cardiac arrest and he is interested and was ordered. He did have a 10 beat run of monomorphic VT. Elevated liver enzymes probably related to passive congestion from cardiomyopathy. Discuss risks/benefits/alternative to LHC to reassess coronaries and patient is agreeable for it. Consulted HCG for LHC and plan for today. (2) NICM (nonischemic cardiomyopathy): Code(s): I42.8 - Other cardiomyopathies Status: Acute Assessment and Plan: With abnormal apical sparing on global longitudinal strain on echo and intermittent LV systolic dysfunction, referred to Amyloidosis clinic at [facility] for assessment. He has not seen them yet. We can order outpatient cardiac MRI for assessment also. (3) CAD (coronary artery disease): Qualifiers: Coronary Disease-Associated Artery/Lesion type: [place] artery [place] vs. transplanted heart: [place] heart Associated angina: without angina Qualified Code(s): I25.10 - Atherosclerotic heart disease of [place] coronary artery without angina pectoris Code(s): I25.10 - Atherosclerotic heart disease of [place] coronary artery without angina pectoris Status: Acute (4) Dyslipidemia: Code(s): E78.5 - Hyperlipidemia, unspecified Status: Acute (5) Hypertension: Qualifiers: Hypertension type: essential hypertension Qualified Code(s): I10 - Essential (primary) hypertension Code(s): I10 - Essential (primary) hypertension Status: Acute Assessment and Plan: Stable. (6) PAT (paroxysmal atrial tachycardia): Code(s): I47.1 - Supraventricular tachycardia Status: Acute (7) PVT (paroxysmal ventricular tachycardia): Code(s): I47.2 - Ventricular tachycardia Status: Acute (8) Elevated troponin: Code(s): R77.8 - Other specified abnormalities of plasma proteins Status: Acute Assessment and Plan: Probably related to acute CHF. Troponin elevated and peaked at 0.191. Subjective Date/time seen: 03/10/23 08:03 Interval history: Reports breathing improving and less edema of legs. Exam Const: General: cooperative, healthy appearing and comfortable Orientation/consciousness: oriented to person, oriented to place and oriented to time Resp: Auscultation: clear to auscultation bilaterally, no crackles, no rales, no rhonchi and no wheezes Cardio: Rate: regular rate Rhythm: regular rhythm Heart sounds: no murmurs Peripheral pulses: dorsalis pedis present Neuro: General: oriented to person, oriented to place and oriented to time Extrem: Right lower extremity: no edema Left lower extremity: edema Other: Trace left pedal edema Objective Data Vital Signs Vital Signs: Vital Signs - 24 hr 03/09/23 08:06 03/09/23 08:17 03/09/23 08:26 Temperature 97.2 F L Pulse Rate 79 83 83 Respiratory Rate 20 Blood Pressure 99/78 L Pulse Oximetry 100 Oxygen Delivery 03/09/23 09:31 03/09/23 12:16 03/09/23 10:00 Temperature 96.5 F L Pulse Rate 80 70 80 Respiratory Rate 20 Blood Pressure 96/66 L Pulse Oximetry 94 100 Oxygen Delivery Room Air 03/09/23 12:00 03/09/23 14:00 03/09/23 15:27 Temperature 97.1 F L Pulse Rate 78 83 87 Respiratory Rate 20 Blood Pressure 105/75 Pulse Oximetry 100 Oxygen
[2023-03-10 08:05] LABS: Hepatitis C Virus Antibody Negative (Negative)
[2023-03-10 08:43] LABS: Glucose Point of Care 188 mg/dl (65-105)
[2023-03-10] MEDS: EMPAGLIFLOZIN 25 MG TABLET PO (09:22)
[2023-03-10] MEDS: SACUBITRIL/VALSARTAN 24-26 MG TABLET 1 TAB PO ×2 (09:22→21:26)
[2023-03-10] MEDS: carvediloL 3.125 MG TABLET PO ×2 (09:22→18:01)
[2023-03-10 10:25] LABS: Hemoglobin A1C 6.9 % (<5.7)
[2023-03-10 12:39] LABS: Glucose Point of Care 149 mg/dl (65-105)
--- NOTE | 2023-03-10 14:30 | PC.NURSE ---
Pt to labor economics professor via bed. Family at bedside. No issues noted
--- NOTE | 2023-03-10 14:40 | PM.CNCAR ---
Assessment and Plan Assessment and plan (1) Combined systolic and diastolic congestive heart failure, NYHA class 1: Code(s): I50.40 - Unspecified combined systolic (congestive) and diastolic (congestive) heart failure Status: Acute (2) NICM (nonischemic cardiomyopathy): Code(s): I42.8 - Other cardiomyopathies Status: Acute (3) CAD (coronary artery disease): Qualifiers: Coronary Disease-Associated Artery/Lesion type: [place] artery [place] vs. transplanted heart: [place] heart Associated angina: without angina Qualified Code(s): I25.10 - Atherosclerotic heart disease of [place] coronary artery without angina pectoris Code(s): I25.10 - Atherosclerotic heart disease of [place] coronary artery without angina pectoris Status: Acute Plan Cardiac cath discussed with the patient, including procedure indications, procedure details, risks vs benefits, post cath care, and alternative management options. Patient agreeable to cath and would like to proceed. Cath today. Patient to remain NPO for procedure. History of Present Illness History of Present Illness Consult date/time: 03/10/23 14:40 Requesting physician: Keegan Dueñas DO Consult reason: Other (Cardiac Cath) Reason For Visit: CHF Exac, Elev Trop Narrative: Interventional Cardiology has been consulted for cardiac cath. This is a pleasant 73-year-old male with history of NICM with history of LV apical thrombus, DM, HTN, HLD, PAT, PVT who follows with Dr. Dueñas. Patient presented with acute on chronic heart failure with worsening of his LV function. Given worsening of his LV function, patient is referred for an ischemic evaluation in the form of cardiac cath. Patient is without any symptoms this morning upon my evaluation. Last cardiac cath in 2019 showed NOCAD. 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, managed as type 2 Encounter for general adult medical examination without abnormal findings Essential (primary) hypertension Hypertension Left ventricular apical thrombus Microalbuminuria Screening for malignant neoplasm of colon Screening for malignant neoplasm of prostate Seropositive rheumatoid arthritis Uncontrolled diabetes mellitus with microalbuminuria Surgical History Surgical History History of prostate surgery Family History Family History Mother Hypertension Family history of malignant neoplasm of cervix Father Family history of Alzheimer's disease Family history of pancreatic cancer Family history of dementia Social History Social History Social History: - lives at home with his [id number] Girlfriend recently . 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
--- NOTE | 2023-03-10 14:45 | WPDMODSED ---
Moderate Sedation Note-Pt Data Patient Data Diagnosis: Cardiomyopathy Present Complaint: Cardiomyopathy Procedure to be performed/Plan: Coronary angiography, LHC, +/- PCI Allergies Allergy/AdvReac Type Severity Reaction Status Date / Time No Known Allergies Allergy Mild Verified 03/07/23 19:30 Home Medications Medication Instructions Recorded Confirmed Type carvedilol 3.125 mg tablet (Coreg) 3.125 mg PO Q12H #180 tabs 06/30/22 03/07/23 Rx furosemide 40 mg tablet 40 mg PO DAILY #180 tabs 10/11/22 03/07/23 Rx empagliflozin 25 mg tablet 25 mg PO DAILY #90 tabs 02/04/23 03/07/23 Rx (Jardiance) glimepiride 4 mg tablet 4 mg PO QAM #90 tabs 02/04/23 03/07/23 Rx metformin 500 mg tablet,extended 1,000 mg PO BID #120 tabs 02/04/23 03/07/23 Rx release 24 hr fluticasone propionate 50 1 spray intranasal Q12H #16 grams 02/25/23 03/07/23 Rx mcg/actuation nasal spray,suspension sacubitril 24 mg-valsartan 26 mg 1 tablet PO BID 03/07/23 03/08/23 History tablet (Entresto) spironolactone 25 mg tablet 25 mg PO DAILY 03/07/23 03/07/23 History Current Medications: Active Medications Carvedilol (Carvedilol 3.125 Mg Tablet) 3.125 mg PO BIDWM [facility] Last Admin: 03/10/23 09:22 Dose: 3.125 mg Dextrose (Dextrose 50% 25 Gm/50 Ml Syringe) 12.5 gm IV PUSH PRN PRN; Protocol PRN Reason: Hypoglycemia Empagliflozin (Empagliflozin 25 Mg Tablet) 25 mg PO DAILY [facility] Last Admin: 03/10/23 09:22 Dose: 25 mg Fluticasone Propionate (Fluticasone Propionate 0.05% Na Spr 16 Gm Btl (*Bkc)) 1 spray NASAL Q12HR [facility] Last Admin: 03/10/23 09:23 Dose: Not Given Furosemide (Furosemide Inj 40 Mg/4 Ml Vial) 40 mg IV PUSH BID [facility] Last Admin: 03/09/23 16:57 Dose: 40 mg Glimepiride (Glimepiride 2 Mg Tablet) 4 mg PO DAILY@0800 [facility] Last Admin: 03/09/23 08:16 Dose: 4 mg Glucagon (Glucagon For Inj 1 Mg Vial) 1 mg IM PRN PRN; Protocol PRN Reason: Hypoglycemia Glucose (Glucose Oral Gel 15 Gm Of Glucse In 37.5 Gm Tube) 15 gm PO PRN PRN; Protocol PRN Reason: Hypoglycemia Dextrose (Dextrose 5% 1,000 Ml) 1,000 mls @ 100 mls/hr IVPB PRN PRN; Protocol PRN Reason: Hypoglycemia Insulin Aspart (Insulin Aspart (*Bkc) 100 Units/Ml) 3 - 6 units SUB-Q TIDWM [facility]; Protocol Last Admin: 03/10/23 11:38 Dose: Not Given Metformin HCl (Metformin Hcl Xr 500 Mg Tab.Sr.24h) 1,000 mg PO BIDWM [facility] Last Admin: 03/08/23 16:44 Dose: Not Given Sacubitril/Valsartan (Sacubitril/Valsartan 24-26 Mg Tablet) 1 tab PO Q12HR [facility] Last Admin: 03/10/23 09:22 Dose: 1 tab Spironolactone (Spironolactone 25 Mg Tablet) 25 mg PO DAILY [facility] Last Admin: 03/09/23 12:28 Dose: 25 mg Sedation/Anesthesia: No previous sedation/anesthesia problems (including family history). 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, managed as type 2 Encounter for general adult medical examination without abnormal findings Essential (primary) hypertension Hypertension Left ventricular apical thrombus Microalbuminuria Screening for malignant neoplasm of colon Screening for malignant neoplasm of prostate Seropositive rheumatoid arthritis Uncontrolled diabetes mellitus with microalbuminuria Surgical History Surgical History History of prostate surgery Family History Family History Mother Hypertension Family history of malignant neoplasm of cervix Father Family history of Alzheimer's disease Family history of pancreatic cancer Family history of dementia Social History Social History (Reviewed 03/10/23 @ 14:5
--- NOTE | 2023-03-10 14:53 | WPDCARDPROC ---
Cardiac Cath Procedure Note Date of procedure:: 03/10/23 Performing physician:: CATHETERIZATION LABORATORY REPORT Procedure Date: 03/10/2023 Compounding Assistant: Alisha Terry M.D., [facility]? Referring Physician: Dr. Dueñas ? Anesthesia: Versed and Fentanyl were ordered and given in my presence at 15:11, procedure ended at 15:30. Supervision of nurse monitored moderate sedation with Versed and Fentanyl was provided for 19 minutes. Total of Versed 2mg and Fentanyl 50mcg were administered by the Handbag Parts Cutter RN Sabi Fish. Pre-op Diagnosis: Heart failure with reduced ejection fraction, coronary artery disease Post-op Diagnosis: 1. Moderate proximal LAD disease. Prior angiogram showed mild disease in the proximal LAD. 2. Moderate ostial Diagonal disease. This appears angiographically unchanged compared to prior angiogram. 3. Focal obstructive lesion of the distal apical LAD. This lesion is not amenable to revascularization given the distal apical location and small caliber vessel size. Recommend medical management. This lesion noted on prior angiogram as well. 4. Moderate diffuse disease of small caliber RPLV branch. This appears angiographically unchanged compared to prior angiogram. 5. Elevated left ventricular end-diastolic pressure of 28mmHg Procedure(s): 1. Moderate sedation 2. Ultrasound-guided access of the right radial artery 3. Coronary angiography 4. Left heart cath Access Site: Right radial artery Brief History and Clinical Indications: Patient is a 73 year old male who is referred for [facility] for ischemic evaluation for worsening LVEF. All risks, benefits and alternatives to left heart catheterization with or without percutaneous coronary intervention was discussed at length with the patient. Risk of complications including but not limited to bleeding, infection, arrhythmia, stroke, worsening kidney function, blood loss, groin hematoma, limb loss, emergency coronary artery bypass grafting, and even were discussed with the patient and all questions were answered. The patient understood and wished to proceed. Time out called, patient name, date of , medical record number, allergies, procedure performed, identify Compounding Assistant, patient and staff member concurred with accurate data, procedure carried on. Findings: LEFT HEART CATHETERIZATION FINDINGS: 1. Left main: The left main coronary artery is widely patent without any significant obstructive disease. 2. Left anterior descending: The proximal LAD has moderate disease at the level of the bifurcation of the first diagonal branch. The mid and distal LAD has mild luminal irregularities. The distal apical LAD has focal 80-90% stenosis. The ostium of the first diagonal branch has moderate disease. 3. Left circumflex: The left circumflex artery and the main marginal branches have mild luminal irregularities without any significant obstructive angiographic disease. 4. Right coronary artery: The RCA is the dominant vessel. The RCA has mild luminal irregularities. The RPDA is a small caliber vessel with mild diffuse disease. The RPLV is a small caliber vessel with moderate diffuse disease. 5. Left ventricle: A. End-diastolic pressure 27mmHg. B. LV gram deferred. C. No significant gradient across aortic valve on catheter pullback. Description of Procedure: Informed consent signed and placed in the chart. Patient transferred to laborer general room. Prepped and draped in usual sterile fashion. 2% lidocaine injected subcutaneously in right wrist area. 22-gauge venipuncture catheter used to access the right radial artery with the Seldinger technique. 6-FR slender sheath placed in right radial artery. Nitroglycerine and Verapamil were given intraarterial through the sheath. Versacore wire advanced under fluoroscopy 5F Tig 4 diagnostic catheter engaged Left Main Coronary Artery. 5F Tig 4 diagnostic catheter engaged Right Coronary Artery Multiple orthogonal angiogram obtained and
--- NOTE | 2023-03-10 17:55 | PM.IMPN ---
Progress Note: A&P Assessment and Plan (1) Combined systolic and diastolic congestive heart failure, NYHA class 1: Code(s): I50.40 - Unspecified combined systolic (congestive) and diastolic (congestive) heart failure Status: Acute Assessment and Plan: Patient presents with complaints of leg edema. BNP elevated at 8470. CXR clear. Echo EF 15-20% grade 3 diastolic dysfunction, mild pulmonary hypertension and moderate TR. Fluid restriction to 1500 cc free water daily. Was on lasix IV. Cardiology consulted. Continue medical management with Coreg, Empag, Entresto and Aldactone. Ischemic evaluation with cardiac catheterization showin. Moderate proximal LAD disease. Prior angiogram showed mild disease in the proximal LAD. 2. Moderate ostial Diagonal disease. This appears angiographically unchanged compared to prior angiogram. 3. Focal obstructive lesion of the distal apical LAD. This lesion is not amenable to revascularization given the distal apical location and small caliber vessel size. Recommend medical management. This lesion noted on prior angiogram as well. 4. Moderate diffuse disease of small caliber RPLV branch. This appears angiographically unchanged compared to prior angiogram.? 5. Elevated left ventricular end-diastolic pressure of 28mmHg Change to oral Lasix. Plan for medical management. Home tomorrow once fitted with LifeVest if okay with others (2) CAD (coronary artery disease): Qualifiers: Coronary Disease-Associated Artery/Lesion type: [place] artery [place] vs. transplanted heart: [place] heart Associated angina: without angina Qualified Code(s): I25.10 - Atherosclerotic heart disease of [place] coronary artery without angina pectoris Code(s): I25.10 - Atherosclerotic heart disease of [place] coronary artery without angina pectoris Status: Acute Assessment and Plan: Chest pain-free. Continue carvedilol. Hold on adding Lipitor due to elevated LFTs. C results as above. Add ASA. (3) CKD (chronic kidney disease) stage 3, GFR 30-59 ml/min: Qualifiers: Chronic kidney disease stage 3 subtype: unspecified whether 3a or 3b Qualified Code(s): N18.30 - Chronic kidney disease, stage 3 unspecified Code(s): N18.3 - Chronic kidney disease, stage 3 (moderate) Status: Acute Assessment and Plan: BUN stable at 37 today with Cr stable at 1.0. Continue to monitor (4) Elevated troponin: Code(s): R77.8 - Other specified abnormalities of plasma proteins Status: Acute Assessment and Plan: Trop at 0.19 but now trending down. Etiology felt related to CHF exacerbation. EKG PVC, new right BBB. LE doppler negative. LHC noted. (5) Hypertension: Qualifiers: Hypertension type: essential hypertension Qualified Code(s): I10 - Essential (primary) hypertension Code(s): I10 - Essential (primary) hypertension Status: Acute Assessment and Plan: Patient's blood pressure was reviewed on 03/10 Blood pressure remains well controlled. Will continue current medications. Continue Mark hose. (6) Elevated LFTs: Code(s): R79.89 - Other specified abnormal findings of blood chemistry Status: Acute Assessment and Plan: LFTs better with AST 130 and ALT 270 now. No abd pain. Hepatitis panel negative and lipase normal. RUQ US normal. LFTs elevated related to hepatic congestion from the CHF. Follow (7) Type 2 diabetes mellitus with hyperglycemia: Qualifiers: Diabetes mellitus salvage determiner insulin use: without usp use Qualified Code(s): E11.65 - Type 2 diabetes mellitus with hyperglycemia Code(s): E11.65 - Type 2 diabetes mellitus with hyperglycemia Status: Acute Assessment and Plan: A1c 6.9. The patient's blood glucose was reviewed on 03/10 Glucose remains mostly well controlled. Continue AccuCheks covering with sliding scale. Hypoglycemia protocol available as needed.
--- NOTE | 2023-03-10 17:55 | PC.NURSE ---
Pt returned from labels molder via bed. No issues noted
--- NOTE | 2023-03-10 18:00 | SUR.PHASEII ---
Bedside report with SHEA Bob. RT wrist remains d/i with pressure drsg. Site without bleeding, bruising, hematoma or pain. Arm board in place RT arm. NSR 70's with occassional PVC. Family at bedside.
[2023-03-10] MEDS: FUROSEMIDE INJ 40 MG/4 ML VIAL IV PUSH (18:01)
[2023-03-10] MEDS: SPIRONOLACTONE 25 MG TABLET PO (18:01)
[2023-03-10] MEDS: GLIMEPIRIDE 2 MG TABLET 4 MG PO (18:01)
[2023-03-10 20:38] LABS: Glucose Point of Care 224 mg/dl (65-105)
[2023-03-11] VITALS (10 sets, daily range): BP systolic 91–100; BP diastolic 72–79; PULSE 71–84; RESP 17–20; TEMP 36.1–36.4; O2SAT 98–100
--- NOTE | 2023-03-11 04:56 | ADMGEN ---
This patient, Abiel Flores, was transfered to [address] [place] [address] Room 312-01. Patient/family oriented to hospital policies and general routines including ID bracelet, bed and alarms, visiting hours, pain management, procedures, bathroom and other care routines, personal items, smoking policy, room service/diet, and visiting hours. Information on how to activate the Rapid Response Team has been discussed. Patient/Family are encouraged to report perceived risks to care and to ask questions if they do not understand what they are told or what they should do.
[2023-03-11 05:02] LABS: Alanine Aminotransferase 216 U/L (6-50); Albumin Level 2.9 g/dL (3.5-5.1); Alkaline Phosphatase 88 U/L (38-126); Anion Gap 6 mmol/L (8-16); Aspartate Amino Transferase 83 U/L (17-59); Bilirubin,Total 1.1 mg/dL (0.2-1.3); Blood Urea Nitrogen 32 mg/dL (9-20); Carbon Dioxide 27 mmol/L (22-30); Chloride 102 mmol/L (98-107); Estimated CRCL calculation 60 ml/min; Estimated Glomerular Filt Rate > 60; Glucose 149 mg/dL (65-110); Potassium 3.9 mmol/L (3.4-5.0); Sodium 135 mmol/L (137-145)
[2023-03-11 07:47] LABS: Glucose Point of Care 161 mg/dl (65-105)
--- NOTE | 2023-03-11 07:52 | PM.PNCARD ---
Progress Note: A&P Assessment and Plan (1) Combined systolic and diastolic congestive heart failure, NYHA class 1: Code(s): I50.40 - Unspecified combined systolic (congestive) and diastolic (congestive) heart failure Status: Acute Assessment and Plan: Essentially euvolemic. Acute on chronic. NTproBNP 8,470. Agree with diuresis with Lasix 40 mg PO BID. Fluid restriction to no more than 1.5 liters/day. Continue Spironolactone, Coreg, Entresto and Jardiance. 03/08/23 Echo: EF 15-20%, mod LVE, mod LVH, grade III diastolic dysfunction (E/e' 25), mod RVE and RV hypokinesis (TAPSE 1.3 cm), mod biatrial enlargement, trace AI, mild MR, mild-mod TR, RVSP 49 mmHg, trace pericardial effusion. Discuss life vest to prevent sudden cardiac arrest and he is interested and was ordered. He did have a 10 beat run of monomorphic VT. Elevated liver enzymes probably related to passive congestion from cardiomyopathy that is improving. Hold off on statin, he was not one before. Await Life vest placement, then he may d/c home from cardiology standpoing to f/u with me in 1 week. (2) NICM (nonischemic cardiomyopathy): Code(s): I42.8 - Other cardiomyopathies Status: Acute Assessment and Plan: With abnormal apical sparing on global longitudinal strain on echo and intermittent LV systolic dysfunction, referred to Amyloidosis clinic at [facility] for assessment. He has not seen them yet. We can order outpatient cardiac MRI for assessment also. (3) CAD (coronary artery disease): Qualifiers: Coronary Disease-Associated Artery/Lesion type: [place] artery [place] vs. transplanted heart: [place] heart Associated angina: without angina Qualified Code(s): I25.10 - Atherosclerotic heart disease of [place] coronary artery without angina pectoris Code(s): I25.10 - Atherosclerotic heart disease of [place] coronary artery without angina pectoris Status: Acute Assessment and Plan: Discuss results of [facility] with patient that was done by Dr. Terry on 03/10/23. He has moderate stenosis. (4) Dyslipidemia: Code(s): E78.5 - Hyperlipidemia, unspecified Status: Acute (5) Hypertension: Qualifiers: Hypertension type: essential hypertension Qualified Code(s): I10 - Essential (primary) hypertension Code(s): I10 - Essential (primary) hypertension Status: Acute Assessment and Plan: Stable. (6) PAT (paroxysmal atrial tachycardia): Code(s): I47.1 - Supraventricular tachycardia Status: Acute (7) PVT (paroxysmal ventricular tachycardia): Code(s): I47.2 - Ventricular tachycardia Status: Acute (8) Elevated troponin: Code(s): R77.8 - Other specified abnormalities of plasma proteins Status: Acute Assessment and Plan: Probably related to acute CHF. Troponin elevated and peaked at 0.191. Subjective Date/time seen: 03/11/23 07:52 Interval history: Reports breathing improving and less edema of legs. Exam Const: General: cooperative, healthy appearing and comfortable Orientation/consciousness: oriented to person, oriented to place and oriented to time Resp: Auscultation: clear to auscultation bilaterally, no crackles, no rales, no rhonchi and no wheezes Cardio: Rate: regular rate Rhythm: regular rhythm Heart sounds: no murmurs Peripheral pulses: dorsalis pedis present Neuro: General: oriented to person, oriented to place and oriented to time Extrem: Right lower extremity: no edema Left lower extremity: edema Other: Trace bilateral pedal edema Objective Data Vital Signs Vital Signs: Vital Signs - 24 hr 03/10/23 08:00 03/10/23 09:22 03/10/23 08:00 Temperature 96.5 F L Pulse Rate 76 77 Respiratory Rate 18 Blood Pressure 105/82 Pulse Oximetry 100 100 Oxygen Delivery Room Air 03/10/23 12:00 03/10/23 12:00 03/10/23 08:00 Temperature 97 F L Pulse Rate 75 77 Respiratory Rate 16 Blood Pressure 10
[2023-03-11] MEDS: GLIMEPIRIDE 2 MG TABLET 4 MG PO (08:48)
[2023-03-11] MEDS: SPIRONOLACTONE 25 MG TABLET PO (08:49)
[2023-03-11] MEDS: carvediloL 3.125 MG TABLET PO (08:49)
[2023-03-11] MEDS: SACUBITRIL/VALSARTAN 24-26 MG TABLET 1 TAB PO (08:49)
[2023-03-11] MEDS: FUROSEMIDE 40 MG TABLET PO (08:50)
[2023-03-11] MEDS: ASPIRIN 81 MG ENTERIC TABLET PO (08:50)
[2023-03-11] MEDS: EMPAGLIFLOZIN 25 MG TABLET PO (08:50)
[2023-03-11] MEDS: FLUTICASONE PROPIONATE 0.05% NA SPR 16 GM BTL (*BKC) 1 SPRAY NASAL (08:50)
--- NOTE | 2023-03-11 09:46 | PM.DS ---
DS: Admitting Diagnosis Discharge Date 03/11/23 Admitting Diagnosis Leg edema DS: Discharge Diagnosis Discharge Diagnosis (1) Combined systolic and diastolic congestive heart failure, NYHA class 1: Code(s): I50.40 - Unspecified combined systolic (congestive) and diastolic (congestive) heart failure Status: Acute (2) CAD (coronary artery disease): Qualifiers: Associated angina: without angina Coronary Disease-Associated Artery/Lesion type: [place] artery [place] vs. transplanted heart: [place] heart Qualified Code(s): I25.10 - Atherosclerotic heart disease of [place] coronary artery without angina pectoris Code(s): I25.10 - Atherosclerotic heart disease of [place] coronary artery without angina pectoris Status: Acute (3) CKD (chronic kidney disease) stage 3, GFR 30-59 ml/min: Qualifiers: Chronic kidney disease stage 3 subtype: unspecified whether 3a or 3b Qualified Code(s): N18.30 - Chronic kidney disease, stage 3 unspecified Code(s): N18.3 - Chronic kidney disease, stage 3 (moderate) Status: Acute (4) Elevated troponin: Code(s): R77.8 - Other specified abnormalities of plasma proteins Status: Acute (5) Hypertension: Qualifiers: Hypertension type: essential hypertension Qualified Code(s): I10 - Essential (primary) hypertension Code(s): I10 - Essential (primary) hypertension Status: Acute (6) Elevated LFTs: Code(s): R79.89 - Other specified abnormal findings of blood chemistry Status: Acute (7) Type 2 diabetes mellitus with hyperglycemia: Qualifiers: Diabetes mellitus halfway insulin use: without terminal press operator use Qualified Code(s): E11.65 - Type 2 diabetes mellitus with hyperglycemia Code(s): E11.65 - Type 2 diabetes mellitus with hyperglycemia Status: Acute (8) NICM (nonischemic cardiomyopathy): Code(s): I42.8 - Other cardiomyopathies Status: Acute (9) PVT (paroxysmal ventricular tachycardia): Code(s): I47.2 - Ventricular tachycardia Status: Acute (10) PAT (paroxysmal atrial tachycardia): Code(s): I47.1 - Supraventricular tachycardia Status: Acute DS: Summary Hospital Course Reason for hospitalization: 73yo male with CHF here for leg edema. Please see H&P for details. Hospital Course: Patient presents with complaints of leg edema. BNP elevated at 8470. CXR was clear. Echo EF 15-20% grade 3 diastolic dysfunction, mild pulmonary hypertension and moderate TR. He was started on IV Lasix. Fluid restriction to 1500 cc free water daily. Cardiology consulted and appreciate thier input. We continued medical management with Coreg, Empag, Entresto and Aldactone. Trop at 0.19 before trending down. Etiology felt related to CHF exacerbation. EKG PVC, new right BBB. LE doppler negative. Ischemic evaluation with cardiac catheterization showin. Moderate proximal LAD disease. Prior angiogram showed mild disease in the proximal LAD. 2. Moderate ostial Diagonal disease. This appears angiographically unchanged compared to prior angiogram. 3. Focal obstructive lesion of the distal apical LAD. This lesion is not amenable to revascularization given the distal apical location and small caliber vessel size. Recommend medical management. This lesion noted on prior angiogram as well. 4. Moderate diffuse disease of small caliber RPLV branch. This appears angiographically unchanged compared to prior angiogram.? 5. Elevated left ventricular end-diastolic pressure of 28mmHg LFTs eelvated but improved to AST 83 and ALT 216. No abd pain. Hepatitis panel negative and lipase normal. RUQ US normal. Elevated LFTs related to hepatic congestion from the CHF.? He remained chest pain-free. We held on adding Lipitor due to elevated LFTs. ASA added. Renal function remained stable with diuresis. BP soft at times and Mark hose added. A1c 6.9. The patient's blood glucose was monitored closely wi
[2023-03-11 12:00] LABS: Glucose Point of Care 218 mg/dl (65-105)
[2023-03-11] MEDS: INSULIN ASPART (*BKC) 100 UNITS/ML SUB-Q (12:14)
[2023-03-12 15:59] LABS: Glucose Point of Care 111 mg/dl (65-105)
[2023-03-18 20:39] LABS: Abnormal Protein Band 1 0.5 g/dL; Albumin 2.8 g/dL (3.8-4.8); Alpha 1 Globulin 0.3 g/dL (0.2-0.3); Alpha 2 Globulin 0.7 g/dL (0.5-0.9); Beta 1 Globulin 0.7 g/dL (0.4-0.6); Gamma Globulin 0.4 g/dL (0.8-1.7); Protein, Total 4.8 g/dL (6.1-8.1)
--- NOTE | 2023-03-21 11:43 | PC.NURSE ---
SIF and SPEP results shown to Dr. Caraballo and faxed to Dr. Rivera.
== END 2023-03-11 15:15 | disposition home or self-care (01) | DRG 286 ==
LOC: ANHED 21:11 → ANHIMU 23:02 → ANH3MEDSUR 03-11 09:12 → ANHIMU 03-14 12:53
PROVIDERS: Family Medicine; Internal Medicine; Internal Medicine Cardiovascular Disease; Admitting Provider Internal Medicine; Emergency Provider Emergency Medicine; PCP Family Medicine; Visit Provider Internal Medicine
PROC: 4A023N7 Measurement of Cardiac Sampling and Pressure, Left Heart, Percutaneous Approach (ICD-10-PCS; CPT 93452; principal; 2023-03-10 11:30)
DX: I13.0 Hypertensive heart and chronic kidney disease with heart failure and stage 1 through stage 4 chronic kidney disease, or unspecified chronic kidney disease (principal); I50.43 Acute on chronic combined systolic (congestive) and diastolic (congestive) heart failure; I47.1 Supraventricular tachycardia; I47.20 Ventricular tachycardia, unspecified; I42.8 Other cardiomyopathies; I08.1 Rheumatic disorders of both mitral and tricuspid valves; I25.10 Atherosclerotic heart disease of native coronary artery without angina pectoris; N18.30 Chronic kidney disease, stage 3 unspecified; E13.22 Other specified diabetes mellitus with diabetic chronic kidney disease; E13.65 Other specified diabetes mellitus with hyperglycemia; E78.5 Hyperlipidemia, unspecified; R79.89 Other specified abnormal findings of blood chemistry; Z79.84 Long term (current) use of oral hypoglycemic drugs; Z85.46 Personal history of malignant neoplasm of prostate
CPT/HCPCS: 36415; 71046; 76705; 80048; 80053; 80074; 82948; 83036; 83690; 83735; 83880; 84100; 84155; 84165; 84484; 85025; 85610; 85730; 86334; 93005; 93306; 93458; 93970; 96376; 99285; A9270; C1769; C1887; C1894; G0378; J1644; J1815; J1940; J2250; J3010; J7040

== ENCOUNTER 2023-03-18 13:21 | Outpatient (CLI) | payer MEDICARE, SELFPAY ==
[2023-03-18 16:48] LABS: Alanine Aminotransferase 116 U/L (6-50); Albumin Level 3.6 g/dL (3.5-5.1); Alkaline Phosphatase 87 U/L (38-126); Anion Gap 8 mmol/L (8-16); Aspartate Amino Transferase 43 U/L (17-59); Bilirubin,Total 1.3 mg/dL (0.2-1.3); Blood Urea Nitrogen 28 mg/dL (9-20); Carbon Dioxide 25 mmol/L (22-30); Chloride 104 mmol/L (98-107); Estimated Glomerular Filt Rate > 60; Glucose 237 mg/dL (65-110); Potassium 4.2 mmol/L (3.4-5.0); Sodium 137 mmol/L (137-145)
== END 2023-03-18 13:22 | disposition home or self-care (01) ==
PROVIDERS: PCP Family Medicine; Visit Provider Internal Medicine
DX: R79.89 Other specified abnormal findings of blood chemistry (principal)
CPT/HCPCS: 36415; 80053

== ENCOUNTER 2023-05-19 12:06 | Emergency (ER) | payer MEDICARE, SELFPAY ==
[2023-05-19] VITALS (8 sets, daily range): BP systolic 88–137; BP diastolic 72–102; PULSE 77–89; RESP 12–20; O2SAT 99–100
--- NOTE | ~2023-05-19 | XR_ITS ---
XR chest 2V 05/19/2023 14:39 Indication: Dyspnea with shortness of breath Procedure: 2 view chest Comparison: Comparison to multiple prior studies sequentially, with oldest reviewed study dated 03/07. Findings: Bibasilar infiltrates. Small pleural effusions. Cardiomegaly. No edema or pneumothorax. No acute osseous abnormality. Impression: 1: Bibasilar infiltrates may represent atelectasis or pneumonia. 2: Small pleural effusions. Reviewed, dictated and finalized at location L. Impression: 1: Bibasilar infiltrates may represent atelectasis or pneumonia. 2: Small pleural effusions.
--- NOTE | 2023-05-19 12:16 | ECG_ITS ---
Measurements Intervals [place] Rate: 84 P: 66 TX: 169 QRS: -60 QRSD: 103 T: 107 QT: 390 QTc: 463 Interpretive Statements SINUS RHYTHM WITH FREQUENT VENTRICULAR PREMATURE COMPLEXES MARKED LEFT AXIS DEVIATION [QRS AXIS < -30] LOW QRS VOLTAGE IN EXTREMITY LEADS [QRS DEFLECTION < 0.5 mV IN LIMB LEADS] POSSIBLE OLD ANTEROSEPTAL MYOCARDIAL INFARCTION COMPARED TO ECG 03/07/2023 19:41:01 SINUS RHYTHM NOW PRESENT THE RIGHT BUNDLE BRANCH BLOCK HAS RESOLVED Electronically Signed On 05-19-2023 13:43:24 CDT by Dorys Hoyos M.D.
[2023-05-19 12:32] LABS: Basophils Percent Auto 0.3 % (0.2-1.2); Eosinophils Percent Auto 0.3 % (0-4.4); Hematocrit 43.4 % (42.0-52.0); Hemoglobin 14.2 g/dL (14.0-18.0); Immature Granulocyte Absolute 0.01 K/mm3 (0.00-0.031); Immature Granulocyte Percent A 0.2 % (0-0.5); Lymphocytes Absolute Auto 1.15 K/mm3 (0.9-3.2); Lymphocytes Percent Auto 18.4 % (18.3-44.2); Mean Corpuscular HGB Conc 32.7 g/dl (32-36); Mean Corpuscular Hemoglobin 32.6 pg (26-34); Mean Corpuscular Volume 99.8 fl (80-100); Mean Platelet Volume 10.2 fl (7.4-10.4); Monocytes Absolute Auto 0.3 K/mm3 (0.1-0.6); Monocytes Percent Auto 5.3 % (2.6-8.5); Neutrophils Absolute Auto 4.7 K/mm3 (1.3-6.7); Neutrophils Percent Auto 75.5 % (45.5-73.1); Nucleated Red Blood Cells Perc 0.3 % (0.0-0.2); Platelet Count Result 270 k/mm3 (150-375); Red Blood Count 4.35 M/mm3 (4.6-6.20); Red Cell Distribution Width 15.3 % (11.5-14.5); White Blood Count 6.2 K/mm3 (4.5-10.0)
[2023-05-19 12:57] LABS: Alanine Aminotransferase 40 U/L (6-50); Albumin Level 3.6 g/dL (3.5-5.1); Alkaline Phosphatase 133 U/L (38-126); Anion Gap 9 mmol/L (8-16); Aspartate Amino Transferase 37 U/L (17-59); Bilirubin,Total 1.8 mg/dL (0.2-1.3); Blood Urea Nitrogen 37 mg/dL (9-20); Carbon Dioxide 23 mmol/L (22-30); Chloride 106 mmol/L (98-107); Estimated CRCL calculation 63 ml/min; Estimated Glomerular Filt Rate > 60; Glucose 103 mg/dL (65-110); Potassium 4.1 mmol/L (3.4-5.0); Sodium 138 mmol/L (137-145)
[2023-05-19 15:07] LABS: NT Pro B Type Natriuretic Pept 8220 pg/mL (19.9-100)
--- NOTE | 2023-05-19 15:11 | ED.SOB ---
HPI - SOB/Dyspnea General Chief Complaint: Shortness of Breath/Dyspnea Stated Complaint: dyspnea, sent from [facility] for [facility] Time Seen by Provider: 05/19/23 15:06 Source: patient and family Mode of arrival: ambulatory Limitations: no limitations History of Present Illness HPI Narrative: 73 years old -[place] male presented to the ED complaining of progressive shortness of breath on exertion over the last few days. Patient reported having similar symptoms few weeks ago, Dr. Alex increased his Lasix with good improvement. Patient reports he is supposed to drink 3 bottles of water a day but he cannot because he feels thirsty so he drinks more than 3 bottles a day. He denies any chest pain or back pain. Related Data Home Medications Medication Instructions Recorded Confirmed sacubitril 24 mg-valsartan 26 mg 1 tablet PO BID 03/07/23 04/01/23 tablet (Entresto) Allergies Allergy/AdvReac Type Severity Reaction Status Date / Time No Known Allergies Allergy Mild Verified 05/19/23 15:10 Review of Systems Review of Systems: All systems reviewed & are unremarkable except as noted in HPI and below PMFSH Past Medical History Medical History Acute arthritis Cancer Prostate Chronic systolic heart failure EF 50-55% (07/2021) CKD (chronic kidney disease) stage 3, GFR 30-59 ml/min Combined systolic and diastolic congestive heart failure, NYHA class 1 Controlled type 2 diabetes mellitus without complication 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, managed as type 2 Encounter for general adult medical examination without abnormal findings Essential (primary) hypertension Hypertension Left ventricular apical thrombus Microalbuminuria Screening for malignant neoplasm of colon Screening for malignant neoplasm of prostate Seropositive rheumatoid arthritis Uncontrolled diabetes mellitus with microalbuminuria Surgical History Surgical History History of prostate surgery Family History Family History Mother Hypertension Family history of malignant neoplasm of cervix Father Family history of Alzheimer's disease Family history of pancreatic cancer Family history of dementia Social History Social History Social History: - lives at home with his [id number] Girlfriend recently . 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 Smoking status: Never smoker Second hand tobacco smoke exposure: No Alcohol intake: current Drinks per week: 2 Substance use: never Substance use type: does not use Lack of Transportation: No Lack of Food: Never True Current Housing: I Have Housing Concerned About Future Housing: No Difficulty Paying Gas/Electric Bills: No Difficulty Paying for Meds: No Currently Unemployed: No Education: Grade School Difficulty w/ Childcare or Family Care: No Living arrangements: with family Spiritual care concerns: No Exam Narrative: General appearance: Well-developed, well-nourished Skin: Normal color, 2+ edema lower extremity bilaterally up to the knees Head: Normocephalic, nontraumatic Eyes: Clear conjunctiva ENT: Oropharynx normal, ears normal, nose normal Neck: Supple, nontender Chest and respiratory: Few scattered rales at the bases bilaterally Heart: Regular rate/rhythm Abdomen: Soft, nontender, no organomegaly, quiet bowel sounds Vascular: Normal peripheral pulses, normal capillary refill. Musculoskeletal: Normal range of motion, nontender back Neurologic: Alert and oriented ?3, REAL TIME ANALYST is normal as tested, no gross motor deficit
--- NOTE | 2023-05-19 15:12 | PC.NURSE ---
Pt states that he was diagnosed with CHF in the past and was taking furosemide to help excrete fluid. States that a few months ago he had a increase of fluids on his body and his PCP increased his dose of furosemide and had no issues. Pt states over the past 4-5 days he has had an increase of swelling to the BLE, difficulty walking, and increasing SOB. Pt also states he just feels 'bad' in general. Denies CP. Denies any n/v/d. Pt states that his bps normally run low. States Hx CHF, HTN, DM,
[2023-05-19 15:35] LABS: Alveolar/Arterial O2 Gradient 34.4 mmHg; Base Excess ABG -2.8 mEq/l (+/-2.0); Fractional Inspired Oxygen 21 %; HCO3 ABG 19.5 mEq/l (22.0-26.0); Oxygen Content ABG 19.9 %vol (16.0-22.0); Oxygen Saturation ABG 96.8 % (95.0-100.0); Oxyhemoglobin 94.6 % THb (90.0-100.0); PCO2 ABG 27.8 mmHg (35.0-45.0); Site Drawn RIGHT RADIAL; Total Hemoglobin 14.9 g/dL (12.0-18.0); pH ABG 7.463 (7.350-7.450)
[2023-05-19 15:36] LABS: Modified Allen's Test Pass
[2023-05-19] MEDS: FUROSEMIDE INJ 40 MG/4 ML VIAL 60 MG IV PUSH (16:26)
== END 2023-05-19 17:12 | disposition home or self-care (01) ==
PROVIDERS: Emergency Medicine; Emergency Provider Emergency Medicine; PCP Family Medicine
DX: I13.0 Hypertensive heart and chronic kidney disease with heart failure and stage 1 through stage 4 chronic kidney disease, or unspecified chronic kidney disease (principal); I50.40 Unspecified combined systolic (congestive) and diastolic (congestive) heart failure; N18.30 Chronic kidney disease, stage 3 unspecified; E13.22 Other specified diabetes mellitus with diabetic chronic kidney disease; M05.9 Rheumatoid arthritis with rheumatoid factor, unspecified; M19.90 Unspecified osteoarthritis, unspecified site; I49.3 Ventricular premature depolarization; Z85.46 Personal history of malignant neoplasm of prostate; Z85.038 Personal history of other malignant neoplasm of large intestine; Z79.4 Long term (current) use of insulin; Z79.84 Long term (current) use of oral hypoglycemic drugs; Z79.82 Long term (current) use of aspirin; R94.31 Abnormal electrocardiogram [ECG] [EKG]
CPT/HCPCS: 36415; 36600; 71046; 80053; 82805; 83880; 85025; 93005; 96374; 99284; J1940

== ENCOUNTER 2023-06-09 08:08 | Outpatient (CLI) | payer MEDICARE, SELFPAY ==
--- NOTE | 2023-06-09 08:55 | ECHO_ITS ---
Patient Info Name: Abiel Flores Age: 73 years : 1950 Gender: Male Ht: 70 in Wt: 140 lbs BSA: 1.76 m2 HR: 96 bpm BP: 96 / 75 mmHg Technical Quality: Good Exam Date: 06/09/2023 9:39 AM Exam Location: [facility] Patient Status: Outpatient Admit Date: 06/09/2023 Staff Ordering Physician: Keegan Dueñas DO Gun Striper: Regina Marshall RDCS Attending Provider: Keegan Dueñas DO Referring Physician: Spenser CHOW; Exam Type: CA echo doppler color flow Study Info Indications I42.8 - Other cardiomyopathies Complete two-dimensional, color flow and Doppler transthoracic echocardiogram is performed. Summary 1. Complete two-dimensional, color flow and Doppler transthoracic echocardiogram is performed. 2. Left ventricular chamber dimension is moderately enlarged. 3. There is severe asymmetric septal increased left ventricular wall thickness with septal thickness of 2.2 cm and posterior wall thickness of 0.9 cm which could suggest hypertrophic cardiomyopathy. 4. Left ventricular systolic function is severely reduced, estimated at 20-25%. 5. The left ventricular diastolic function is grade III diastolic dysfunction. 6. E/e' 26 is significantly elevated. 7. Global longitudinal strain is abnormal at -5.7% with apical sparing which could suggest amyloidosis. 8. Right ventricular chamber dimension is severely enlarged. 9. Right ventricular systolic function is severely reduced and with abnormal TAPSE 1.2 cm. 10. Left atrial chamber dimension is severely enlarged. 11. Right atrial chamber dimension is severely enlarged. 12. There is trace aortic valve regurgitation. 13. There is mild to moderate mitral valve regurgitation. 14. There is mild to moderate tricuspid valve regurgitation. 15. Mild pulmonary hypertension, estimated pulmonary arterial systolic pressure is 41 mmHg. 16. There is trace pulmonic regurgitation. 17. Normal inferior vena cava with <50% collapse upon inspiration consistent with elevated right atrial pressure, 10 mmHg. Left Ventricle E/e' 26 is significantly elevated. Global longitudinal strain is abnormal at -5.7% with apical sparing which could suggest amyloidosis. There is severe asymmetric septal increased left ventricular wall thickness with septal thickness of 2.2 cm and posterior wall thickness of 0.9 cm which could suggest hypertrophic cardiomyopathy. Left ventricular chamber dimension is moderately enlarged. Left ventricular systolic function is severely reduced, estimated at 20-25%. The left ventricular diastolic function is grade III diastolic dysfunction. Right Ventricle Right ventricular systolic function is severely reduced and with abnormal TAPSE 1.2 cm. Right ventricular chamber dimension is severely enlarged. Left Atria Left atrial chamber dimension is severely enlarged. Right Atria Right atrial chamber dimension is severely enlarged. Aortic Valve The aortic valve is trileaflet. There is no aortic valve stenosis. There is trace aortic valve regurgitation. Pulmonic Valve There is trace pulmonic regurgitation. Mitral Valve There is no mitral valve stenosis. There is mild to moderate mitral valve regurgitation. Tricuspid Valve There is mild to moderate tricuspid valve regurgitation. Mild pulmonary hypertension, estimated pulmonary arterial systolic pressure is 41 mmHg. Pericardium/Pleural There is no pericardial effusion. Inferior Vena Cava Normal inferior vena cava with <50% collapse upon inspiration consistent with elevated right atrial pressure, 10 mmHg. Aorta The aortic root size at the sinus of Valsalva is normal.
== END 2023-06-09 08:09 | disposition home or self-care (01) ==
PROVIDERS: PCP Family Medicine; Visit Provider Internal Medicine Cardiovascular Disease
DX: I42.8 Other cardiomyopathies (principal); I08.3 Combined rheumatic disorders of mitral, aortic and tricuspid valves
CPT/HCPCS: 93306

== ENCOUNTER 2023-08-04 11:28 | Emergency (ER) | payer MEDICARE, SELFPAY ==
[2023-08-04] VITALS (45 sets, daily range): BP systolic 85–113; BP diastolic 53–94; PULSE 68–109; RESP 15–25; TEMP 36.6; O2SAT 93–100
--- NOTE | ~2023-08-04 | XR_ITS ---
EXAMINATION: XR chest 2V DATE: 08/04/2023 13:12 INDICATION: Chest pain TECHNIQUE: PA and lateral views of the chest were obtained. COMPARISON: Chest radiograph dated 05/19/2023 FINDINGS: New airspace opacities in the left lower lung zone. Right lung remains clear. No pleural effusion or pneumothorax. Cardiomegaly. IMPRESSION: 1. Opacities in the left lower lung zone which could represent pneumonia, pulmonary infarct, atelecta sis, asymmetric pulmonary edema or some combination thereof. 2. Cardiomegaly. Reviewed, dictated and finalized at location A. IMPRESSION: 1. Opacities in the left lower lung zone which could represent pneumonia, pulmo nary infarct, atelectasis, asymmetric pulmonary edema or some combination there of. 2. Cardiomegaly.
--- NOTE | ~2023-08-04 | CT_ITS ---
EXAMINATION: CT chest abdomen pelvis w con DATE: 08/04/2023 13:02 INDICATION: Congestive heart failure. Chest and abdominal pain. TECHNIQUE: Computed tomography (CT) of the chest, abdomen, and pelvis was performed with 100 mL Omnip aque-350 intravenous contrast. Automated exposure control and iterative reconstruction technique were employed. The dose-length product was 471.14 mGy-cm. COMPARISON: None FINDINGS: CHEST CT: There are extensive pulmonary emboli which includes a saddle embolus extending between the right and left pulmonary arteries. Pulmonary emboli are seen in the right upper lobar and thin consistency apic al and posterior segmental pulmonary arteries, the right lower lobar and each of the basilar segmenta l pulmonary arteries, the entrance to the medial and lateral right middle lobar pulmonary arteries, t he left lower lobar and many of the basilar segmental and subsegmental pulmonary arteries and both th e superior and inferior segmental pulmonary arteries of the lingula. There are geographic regions of groundglass opacity at the basilar aspect of the lingula and left lower lobe suspicious for associate d pulmonary infarcts differential including atelectasis or mild pulmonary edema. There are some perip heral smooth septal thickening at the right lung base more likely to represent atelectasis or mild pu lmonary edema. Cardiomegaly with right atrial and ventricular enlargement without leftward bowing of the ventricular septum to suggest right heart strain. Atherosclerotic coronary artery calcifications. No pericardial effusion. Thoracic aorta is normal in caliber with no dissection. No pathologically e nlarged thoracic lymphadenopathy. 3 x 3 x 1.5 cm intramuscular lipoma at the right subscapularis musc le. Mild thoracic dextrocurvature with mild to moderate spondylosis. ABDOMEN/PELVIS CT: Liver, gallbladder, spleen and left adrenal gland are normal. Indeterminate 3.3 x 2.7 cm right adrena l mass. 1.5 cm left renal cyst. 8 mm lesion at the upper pole the left kidney most likely an addition al cyst but too small to definitively characterize. 1.6 x 1.3 cm enhancing nodule at the tail of the pancreas. There is moderate scattered diverticulosis with sigmoid colon predominance but without surr ounding inflammatory stranding to suggest diverticulitis. Small bowel and appendix are normal. Bladde r is normal. Postoperative changes of prior prostatectomy with multiple surgical clips in the deep pe lvis. Small amount of ascites in the pelvis. No abscess or free intraperitoneal gas. Mild body wall e lilia. Mild lumbar levocurvature with moderate to severe spondylosis. IMPRESSION: 1. Extensive bilateral pulmonary embolism with high clot burden sparing only the left upper lobe but also including a saddle embolus. Dr. Ann discussed these findings with Dr. Thibodeaux at 1:20 PM. 2. Cardiomegaly with right-sided cardiac enlargement but no leftward bowing of the ventricular septum to suggest right heart strain. 3. Groundglass opacities in the basilar left lower lobe and lingula which could represent pulmonary i nfarcts, pulmonary edema, pneumonia, atelectasis or some combination thereof 3. 1.6 cm enhancing nodule at the tail of the pancreas. Differential would include accessory splenule , solid pseudopapillary tumor, solid serous cystadenoma, pancreas carcinoma, primary neuroendocrine t umor or hypervascular pancreatic metastasis. This in relatively close proximity to the stomach and co uld consider endoscopic ultrasound for further evaluation and potential biopsy. 4. indeterminate 3.3 cm right adrenal mass which could represent an adenoma, metastatic disease or ot her primary adrenal neoplasm either benign or malignant. Consider further evaluation with pre and pos tcontrast MRI or CT. This and the pancreatic lesion were also discussed with Dr. Thibodeaux. 5. Body wall edema and small amount of ascites in the pelvis. 6. Diverticulosis. _
--- NOTE | 2023-08-04 11:31 | ECG_ITS ---
Measurements Intervals [place] Rate: 100 P: 55 CA: 172 QRS: -76 QRSD: 144 T: 68 QT: 378 QTc: 489 Interpretive Statements SINUS TACHYCARDIA ATRIAL TRIPLET AND ATRIAL PREMATURE COMPLEXES LEFT AXIS DEVIATION RIGHT BUNDLE BRANCH BLOCK INFERIOR INFARCT, AGE INDETERMINATE ABNORMAL ECG COMPARED TO ECG 05/19/2023 12:20:51 SINUS TACHYCARDIA NOW PRESENT RIGHT BUNDLE-BRANCH BLOCK NOW PRESENT Electronically Signed On 08-04-2023 14:23:41 CDT by Keegan Dueñas D.O.
[2023-08-04 11:59] LABS: Basophils Percent Auto 0.2 % (0.2-1.2); Eosinophils Percent Auto 0.2 % (0-4.4); Hematocrit 44.8 % (42.0-52.0); Hemoglobin 14.4 g/dL (14.0-18.0); Immature Granulocyte Absolute 0.04 K/mm3 (0.00-0.031); Immature Granulocyte Percent A 0.5 % (0-0.5); Lymphocytes Absolute Auto 1.13 K/mm3 (0.9-3.2); Lymphocytes Percent Auto 13.7 % (18.3-44.2); Mean Corpuscular HGB Conc 32.1 g/dl (32-36); Mean Corpuscular Hemoglobin 32.2 pg (26-34); Mean Corpuscular Volume 100.2 fl (80-100); Mean Platelet Volume 10.1 fl (7.4-10.4); Monocytes Absolute Auto 0.9 K/mm3 (0.1-0.6); Monocytes Percent Auto 10.3 % (2.6-8.5); Neutrophils Absolute Auto 6.2 K/mm3 (1.3-6.7); Neutrophils Percent Auto 75.1 % (45.5-73.1); Platelet Count Result 256 k/mm3 (150-375); Red Blood Count 4.47 M/mm3 (4.6-6.20); Red Cell Distribution Width 14.2 % (11.5-14.5); White Blood Count 8.3 K/mm3 (4.5-10.0)
[2023-08-04 12:11] LABS: Alanine Aminotransferase 30 U/L (6-50); Albumin Level 4.2 g/dL (3.5-5.1); Alkaline Phosphatase 109 U/L (38-126); Anion Gap 11 mmol/L (8-16); Aspartate Amino Transferase 32 U/L (17-59); Bilirubin,Total 1.5 mg/dL (0.2-1.3); Blood Urea Nitrogen 32 mg/dL (9-20); Calcium 9.7 mg/dL (8.4-10.2); Carbon Dioxide 28 mmol/L (22-30); Chloride 98 mmol/L (98-107); Estimated Glomerular Filt Rate > 60; Glucose 136 mg/dL (65-110); Lipase 39 U/L (23-300); Potassium 4.5 mmol/L (3.4-5.0); Sodium 137 mmol/L (137-145)
[2023-08-04 12:17] LABS: INR 1.2; Partial Thromboplastin Time 30.4 SECONDS (22.3-36.8); Prothrombin Time 16.2 Seconds (11.1-14.7)
[2023-08-04 12:25] LABS: Troponin I 0.108 ng/mL (0.000-0.034)
--- NOTE | 2023-08-04 12:26 | ED.CHESTPAIN ---
HPI - Chest Pain General Chief Complaint: Chest Pain Stated Complaint: Chest cavity pain Time Seen by Provider: 08/04/23 12:26 Source: patient Mode of arrival: ambulatory Limitations: no limitations History of Present Illness HPI narrative: 73 years old -Citizen Of [place] male drove himself to the ED complaining of chest cavity soreness started last night. Patient is telling me that yesterday he felt tired all over. Woke up this morning with chest cavity soreness. Worse with deep breath, better remaining still. Went to work today and could not do it because of the pain in the chest cavity. Patient lives with his [id number], drove himself to the ED. His pain is 7 out of 10. History of amyloidosis, diabetes, hypertension, congestive heart failure not an antiplatelet or anticoagulant medication. Related Data Home Medications Medication Instructions Recorded Confirmed sacubitril 24 mg-valsartan 26 mg 1 tablet PO BID 03/07/23 07/28/23 tablet (Entresto) Allergies Allergy/AdvReac Type Severity Reaction Status Date / Time No Known Allergies Allergy Mild Verified 07/28/23 11:26 Review of Systems Review of Systems: All systems reviewed & are unremarkable except as noted in HPI and below PMFSH Past Medical History Medical History Acute arthritis Cancer Prostate Chronic systolic heart failure EF 50-55% (07/2021) CKD (chronic kidney disease) stage 3, GFR 30-59 ml/min Combined systolic and diastolic congestive heart failure, NYHA class 1 Controlled type 2 diabetes mellitus without complication 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, managed as type 2 Encounter for general adult medical examination without abnormal findings Essential (primary) hypertension Hypertension Left ventricular apical thrombus Microalbuminuria Screening for malignant neoplasm of colon Screening for malignant neoplasm of prostate Seropositive rheumatoid arthritis Uncontrolled diabetes mellitus with microalbuminuria Surgical History Surgical History History of prostate surgery Family History Family History Mother Hypertension Family history of malignant neoplasm of cervix Father Family history of Alzheimer's disease Family history of pancreatic cancer Family history of dementia Social History Social History Social History: - lives at home with his [id number] Girlfriend recently . 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 Smoking status: Never smoker Second hand tobacco smoke exposure: No Alcohol intake: current Drinks per week: 2 Substance use: never Substance use type: does not use Lack of Transportation: No Lack of Food: Never True Current Housing: I Have Housing Concerned About Future Housing: No Difficulty Paying Gas/Electric Bills: No Difficulty Paying for Meds: No Currently Unemployed: No Education: Grade School Difficulty w/ Childcare or Family Care: No Living arrangements: with family Occupation/Education: occupation Gender identity (if verbalized by the patient): Male Spiritual care concerns: No Exam Narrative: General appearance: Well-developed, well-nourished Skin: Normal color Head: Normocephalic, nontraumatic Eyes: Clear conjunctiva ENT: Oropharynx normal, ears normal, nose normal Neck: Supple, nontender Chest and respiratory: Airway patent, no respiratory distress, no accessory muscle use Heart: Regular rate/rhythm Abdomen: Abdominal guarding, diffuse stiffness and tenderness Vascular: Normal peripheral pulses, normal capillary refill. Musculoskeletal: Normal range of motion, nontender back Neurologic: Alert and oriented ?3, QUALITY CLOTH TESTER is normal as tested, no gross motor deficit
--- NOTE | 2023-08-04 12:59 | PC.NURSE ---
Patient off unit to radiology.
[2023-08-04] MEDS: ONDANSETRON INJ 4 MG/2 ML VIAL IV PUSH (13:17)
[2023-08-04] MEDS: SODIUM CHLORIDE 0.9% IV 1,000 ML 999 ML IV CONT (13:17)
[2023-08-04] MEDS: HYDROmorphone HCL INJ (*CRX) 1 MG/ML SYR 0.5 MG IV PUSH ×2 (13:18→14:49)
[2023-08-04] MEDS: HEPARIN SOD/D5W 100 UNITS/ML 25,000 UNITS/250 ML BAG 12 UNITS IV CONT (13:57)
[2023-08-04] MEDS: HEPARIN SODIUM 5,000 UNITS/ML VIAL 5500 UNITS IV PUSH (13:59)
[2023-08-04 14:31] LABS: NT Pro B Type Natriuretic Pept 8030 pg/mL (19.9-100)
[2023-08-04 15:46] LABS: SARS-CoV-2 RNA PCR Negative (Negative)
--- NOTE | 2023-08-04 19:02 | PC.NURSE ---
Patient report given to HSEA Ramos. All questions answered and care of patient transferred.
== END 2023-08-04 19:22 | disposition short-term general hospital (02) ==
PROVIDERS: Emergency Provider Emergency Medicine; PCP Family Medicine
DX: I26.99 Other pulmonary embolism without acute cor pulmonale (principal); Z20.822 Contact with and (suspected) exposure to COVID-19; I13.0 Hypertensive heart and chronic kidney disease with heart failure and stage 1 through stage 4 chronic kidney disease, or unspecified chronic kidney disease; N18.30 Chronic kidney disease, stage 3 unspecified; I50.40 Unspecified combined systolic (congestive) and diastolic (congestive) heart failure; E13.22 Other specified diabetes mellitus with diabetic chronic kidney disease; M05.9 Rheumatoid arthritis with rheumatoid factor, unspecified; Z85.46 Personal history of malignant neoplasm of prostate; Z85.89 Personal history of malignant neoplasm of other organs and systems; I51.7 Cardiomegaly; K57.90 Diverticulosis of intestine, part unspecified, without perforation or abscess without bleeding; E27.8 Other specified disorders of adrenal gland; R00.0 Tachycardia, unspecified; I45.10 Unspecified right bundle-branch block; I49.3 Ventricular premature depolarization
CPT/HCPCS: 36415; 71046; 71260; 74177; 80053; 83690; 83880; 84484; 85025; 85610; 85730; 87635; 93005; 96365; 96366; 96375; 96376; 99291; J1170; J1644; J2405; J7030; Q9967

== ENCOUNTER 2023-08-19 13:27 | Outpatient (CLI) | payer MEDICARE, SELFPAY ==
[2023-08-19 14:34] LABS: Basophils Percent Auto 0.4 % (0.2-1.2); Eosinophils Percent Auto 0.4 % (0-4.4); Hematocrit 42.6 % (42.0-52.0); Hemoglobin 13.6 g/dL (14.0-18.0); Immature Granulocyte Absolute 0.04 K/mm3 (0.00-0.031); Immature Granulocyte Percent A 0.6 % (0-0.5); Lymphocytes Absolute Auto 1.18 K/mm3 (0.9-3.2); Lymphocytes Percent Auto 16.5 % (18.3-44.2); Mean Corpuscular HGB Conc 31.9 g/dl (32-36); Mean Corpuscular Hemoglobin 32.3 pg (26-34); Mean Corpuscular Volume 101.2 fl (80-100); Mean Platelet Volume 10.3 fl (7.4-10.4); Monocytes Absolute Auto 0.4 K/mm3 (0.1-0.6); Monocytes Percent Auto 4.9 % (2.6-8.5); Neutrophils Absolute Auto 5.5 K/mm3 (1.3-6.7); Neutrophils Percent Auto 77.2 % (45.5-73.1); Nucleated Red Blood Cells Absolute Auto 0.1 K/mm3 (0.0-0.012); Nucleated Red Blood Cells Perc 0.7 % (0.0-0.2); Platelet Count Result 315 k/mm3 (150-375); Red Blood Count 4.21 M/mm3 (4.6-6.20); Red Cell Distribution Width 14.9 % (11.5-14.5); White Blood Count 7.1 K/mm3 (4.5-10.0)
[2023-08-19 14:50] LABS: Alanine Aminotransferase 44 U/L (6-50); Albumin Level 4.1 g/dL (3.5-5.1); Alkaline Phosphatase 102 U/L (38-126); Anion Gap 12 mmol/L (8-16); Aspartate Amino Transferase 45 U/L (17-59); Bilirubin,Total 1.5 mg/dL (0.2-1.3); Blood Urea Nitrogen 30 mg/dL (9-20); Calcium 9.4 mg/dL (8.4-10.2); Carbon Dioxide 28 mmol/L (22-30); Chloride 100 mmol/L (98-107); Estimated Glomerular Filt Rate > 60; Glucose 341 mg/dL (65-110); Potassium 4.2 mmol/L (3.4-5.0); Sodium 140 mmol/L (137-145)
[2023-08-19 14:57] LABS: Immunoglobulin A 552 mg/dL (70-400); Immunoglobulin G 545 mg/dL (700-1600); Immunoglobulin M 93 mg/dL (40-230)
[2023-08-23 13:41] LABS: Abnormal Protein Band 1 0.7 g/dL; Albumin 3.7 g/dL (3.8-4.8); Alpha 1 Globulin 0.3 g/dL (0.2-0.3); Alpha 2 Globulin 0.7 g/dL (0.5-0.9); Gamma Globulin 0.5 g/dL (0.8-1.7); Protein, Total 6.5 g/dL (6.1-8.1)
[2023-08-23 23:17] LABS: Lambda Light Chain 13.9 mg/L (5.7-26.3)
== END 2023-08-19 13:28 | disposition home or self-care (01) ==
PROVIDERS: PCP Family Medicine; Visit Provider Internal Medicine Hematology & Oncology
DX: D47.2 Monoclonal gammopathy (principal)
CPT/HCPCS: 36415; 80053; 82784; 83883; 84155; 84165; 85025

== ENCOUNTER 2023-11-07 12:55 | Outpatient (CLI) | payer MEDICARE, SELFPAY ==
[2023-11-07 14:09] LABS: Basophils Percent Auto 0.2 % (0.2-1.2); Eosinophils Percent Auto 0.7 % (0-4.4); Hematocrit 43.7 % (42.0-52.0); Hemoglobin 13.7 g/dL (14.0-18.0); Immature Granulocyte Absolute 0.04 K/mm3 (0.00-0.031); Immature Granulocyte Percent A 0.7 % (0-0.5); Lymphocytes Absolute Auto 0.61 K/mm3 (0.9-3.2); Lymphocytes Percent Auto 10.4 % (18.3-44.2); Mean Corpuscular HGB Conc 31.4 g/dl (32-36); Mean Corpuscular Hemoglobin 31.4 pg (26-34); Mean Platelet Volume 12.8 fl (7.4-10.4); Monocytes Absolute Auto 0.3 K/mm3 (0.1-0.6); Monocytes Percent Auto 5.1 % (2.6-8.5); Neutrophils Absolute Auto 4.9 K/mm3 (1.3-6.7); Neutrophils Percent Auto 82.9 % (45.5-73.1); Platelet Count Result 203 k/mm3 (150-375); Red Blood Count 4.37 M/mm3 (4.6-6.20); Red Cell Distribution Width 15.6 % (11.5-14.5); White Blood Count 5.9 K/mm3 (4.5-10.0)
[2023-11-07 14:24] LABS: Magnesium 1.9 mg/dL (1.6-2.3)
[2023-11-07 14:35] LABS: Alanine Aminotransferase 63 U/L (6-50); Albumin Level 3.5 g/dL (3.5-5.1); Alkaline Phosphatase 227 U/L (38-126); Anion Gap 11 mmol/L (8-16); Aspartate Amino Transferase 52 U/L (17-59); Bilirubin,Total 1.7 mg/dL (0.2-1.3); Blood Urea Nitrogen 52 mg/dL (9-20); Calcium 9.4 mg/dL (8.4-10.2); Carbon Dioxide 24 mmol/L (22-30); Chloride 97 mmol/L (98-107); Estimated Glomerular Filt Rate 60; Glucose 555 mg/dL (65-110); Potassium 4.1 mmol/L (3.4-5.0); Sodium 132 mmol/L (137-145)
[2023-11-07 14:50] LABS: Hemoglobin A1C 11.1 % (<5.7)
[2023-11-07 17:01] LABS: Appearance Urine Clear (Clear); Bilirubin Urine Negative (Negative); Blood Urine Negative (Negative); Color Urine Yellow (Yellow); Glucose Urine UA 3+ mg/dL (Negative); Ketones Urine Negative (Negative); Leukocyte Esterase Ur Negative LEU/UL (Negative); Nitrate Urine Negative (Negative); Protein Urine Negative (Negative); Specific Grav Ur 1.012 (1.001-1.035); pH Urine 5.5 (5.0-9.0)
[2023-11-07 17:07] LABS: Add Urine Microscopic? NO
== END 2023-11-07 12:56 | disposition home or self-care (01) ==
PROVIDERS: PCP Family Medicine; Referring Provider Family Medicine; Visit Provider Internal Medicine Cardiovascular Disease
DX: R53.83 Other fatigue (principal); E11.9 Type 2 diabetes mellitus without complications; I50.40 Unspecified combined systolic (congestive) and diastolic (congestive) heart failure; Z87.440 Personal history of urinary (tract) infections
CPT/HCPCS: 36415; 80053; 81003; 83036; 83735; 85025